=== PATIENT | female | born 1965 | race Caucasian/White ===

== ENCOUNTER → 2018-05-12 20:31 | Outpatient (CLI) | payer SELFPAY ==
[2012-06-02 02:03] VITALS: BMI 33.3
== END | disposition home or self-care (01) ==
LOC: D.MAMMO 10:30
DX: Z12.31 Encounter for screening mammogram for malignant neoplasm of breast (principal)

== ENCOUNTER 2018-06-04 22:25 | Outpatient (CLI) | payer MEDICAID ==
[2012-06-02 02:03] VITALS: BMI 33.3
== END 2018-06-04 23:59 | disposition home or self-care (01) ==
LOC: D.MAMMO 22:25
DX: R92.8 Other abnormal and inconclusive findings on diagnostic imaging of breast (principal)

== ENCOUNTER → 2018-09-24 10:37 | Outpatient (CLI) | payer MEDICAID ==
[2012-06-02 02:03] VITALS: BMI 33.3
== END | disposition home or self-care (01) ==
LOC: D.CT 10:37
DX: C21.0 Malignant neoplasm of anus, unspecified (principal)

== ENCOUNTER 2018-10-14 06:24 | Day surgery (SDC) | payer MEDICAID ==
[~2018-10-14] VITALS: Ht 165.1 cm; Wt 72.7 kg
--- NOTE | ~2018-10-14 | OP ---
PATIENT NAME: BECKY KEENAN MEDICAL RECORD: [id number] :61 LOCATION:D.OPS ADMISSION DATE: SURGEON: SHER BEAN MD DATE OF OPERATION: 10/14/2018 PREOPERATIVE DIAGNOSES: 1. Rectal cancer. 2. Hypertension. POSTOPERATIVE DIAGNOSES: 1. Rectal cancer. 2. Hypertension. PROCEDURE: Right subclavian vein port placement with fluoroscopic interpretation. SURGEON: Sher Bean MD REPORT OF PROCEDURE: The patient's right chest was prepped and draped in sterile fashion. A needle was used to cannulate the right subclavian vein and a guidewire was advanced with ease. Fluoro was used to note that the wire was in good position in the venous system. A skin incision was made on the right lateral superior chest and a subcutaneous pouch was made over the pectoral fascia. The catheter was tunneled between the subcutaneous pouch and the wire exit site. The port was then sutured to the pectoral fascia using interrupted 3-0 Prolenes times 2. The catheter was cut with a beveled tip at 23-cm. The dilator trocar device placed over the wire and the wire and dilator were removed. The catheter tip was advanced through the trocar with ease and the trocar was then removed. The catheter tip was then noted to be resting in good position at the right atrial superior vena caval junction. The catheter aspirated nonpulsatile dark blood and flushed easily with heparinized saline. The subcutaneous tissues were reapproximated with interrupted 3-0 Vicryl and the skin was closed with running subcutaneous 5-0 Monocryl. COMPLICATIONS: None. CONDITION: Stable. ANESTHESIA: General endotracheal and local. BLOOD LOSS: Minimal. TRANSINT:[id number] Voice Confirmation ID: [id number] DOCUMENT ID: [id number] SHER BEAN MD CC: RAYMOND EDMONDSON MD and MARIA DEL CARMEN SALMERON MD [id number] DICTATION DATE: 10/14/18 0959 CAPTAIN WAITER/WAITRESS: 10/14/18 10[address] [place] [id number] [place] [id number]
[~2018-10-14 06:24] MED LIST: ATIVAN0.5 MG PO; COREG6.25 MG PO; PREVACID30 MG PO; PRINIVIL20 MG PO; PROBIOTIC1 EAC1 PO; XELODA500 MG PO; ZOFRAN ODT4 MG/UDTAB PO
[2018-10-14 06:59] LABS: ANION GAP 13.7 mmol/L (8-16); CALCIUM 8.7 mg/dL (8.5-10.1); POTASSIUM - SERUM 3.7 mmol/L (3.5-5.1)
[2018-10-14 07:19] LABS: BASOPHILS 0.6 % (0-2); EOSINOPHILS 1.3 % (0-7); HEMATOCRIT 34.1 % (36.0-48.0); HEMOGLOBIN 10.9 g/dL (12-16); IMMATURE GRANULOCYTES 1.3 % (0-5); LYMPHOCYTES 13.6 % (15-50); MCH 24.8 pg (26.0-34.0); MCV 77.7 fL (80.0-100.0); MEAN PLATELET VOLUME 9.8 fL (7.4-10.4); MONOCYTES 11.4 % (2-11); NEUTROPHILS 71.8 % (40-80); RBC 4.39 10x6/uL (4.00-5.40); RDW 16.7 % (11.5-14.5); WBC 5.4 10x3/uL (4.8-10.8)
[2018-10-14 07:27] LABS: PLATELET COUNT 308 10x3/uL (130-400)
[2018-10-14 08:11] LABS: HCG URINE NEGATIVE (NEGATIVE)
[2018-10-14 08:29] VITALS: BP 108/75; Ht 165.1 cm; Wt 72.7 kg
[2018-10-14] MEDS ORDERED: NORCO 10-325 TA1 TAB PO (09:53)
--- NOTE | 2018-10-14 12:10 | NUR ---
PATIENT AMBULATES TO BATHROOM WITH MINIMAL DIZZINESS. REPORTS CHRONIC DIZZINESS WITH A RECENT FALL AT HOME YESTERDAY. PATIENT TOLERATING CLEAR LIQUIDS WITH MINIMAL NAUSEA, NO VOMITING
--- NOTE | 2018-10-14 12:35 | NUR ---
DISCHARGE INSTRUCTIONS REVIEWED WITH PATIENT, MOTHER, AND DAUGHTER. DISCHARGED HOME VIA WHEELCHAIR TO PRIVATE VEHICLE WITH FAMILY
== END 2018-10-14 12:35 | disposition home or self-care (01) ==
LOC: D.OPS 06:24 → D.PAN 09:00 → D.OPS 09:00
PROVIDERS: Surgery
DX: C20 Malignant neoplasm of rectum (principal)

== ENCOUNTER → 2018-11-25 09:21 | Outpatient (CLI) | payer MEDICAID ==
[2018-10-14 08:29] VITALS: BMI 26.6
[~2018-11-25 09:21] MED LIST changes: +NORCO 10-325 TA1 TAB PO
== END | disposition home or self-care (01) ==
LOC: D.CT 09:21
PROVIDERS: ATTEND Internal Medicine Medical Oncology
DX: C20 Malignant neoplasm of rectum (principal); D50.9 Iron deficiency anemia, unspecified; R11.2 Nausea with vomiting, unspecified; E86.0 Dehydration

== ENCOUNTER 2018-12-07 16:36 | Inpatient (IN) | payer MEDICAID ==
[~2018-12-07] VITALS: Ht 165.1 cm; Wt 62.1 kg
[2018-12-13] MEDS ORDERED: PROBIOTIC250 MG PO (15:21)
[2018-12-13 15:54] LABS: BASOPHILS 0.3 % (0-2); EOSINOPHILS 4.4 % (0-7); HEMATOCRIT 38.1 % (36.0-48.0); HEMOGLOBIN 12.8 g/dL (12-16); IMMATURE GRANULOCYTES 0.5 % (0-5); LYMPHOCYTES 14.5 % (15-50); MCH 28.7 pg (26.0-34.0); MCHC 33.6 g/dL (31.0-37.0); MCV 85.4 fL (80.0-100.0); MEAN PLATELET VOLUME 9.4 fL (7.4-10.4); MONOCYTES 17.1 % (2-11); NEUTROPHILS 63.2 % (40-80); RBC 4.46 10x6/uL (4.00-5.40); RDW 19.5 % (11.5-14.5); WBC 3.9 10x3/uL (4.8-10.8)
[2018-12-13 16:03] LABS: APTT 28.5 SECONDS (22.8-39.4); INR 1.07 (0.85-1.17); PROTIME 13.4 SECONDS (11.6-15.0)
[2018-12-13 16:06] LABS: PLATELET COUNT 185 10x3/uL (130-400)
[2018-12-13 16:10] LABS: CALC OSMOLALITY 280 mosm/kg (275-300); CALCIUM 8.5 mg/dL (8.5-10.1); CARBON DIOXIDE 31.3 mmol/L (21.0-32.0); CHLORIDE - SERUM 104 mmol/L (98-107); CREATININE - SERUM 0.8 mg/dL (0.6-1.3); GLUCOSE 93 mg/dL (74-106); POTASSIUM - SERUM 3.3 mmol/L (3.5-5.1); SODIUM 142 mmol/L (136-145); UREA NITROGEN 6 mg/dL (7-18); eGFR NON AFRICAN AMERICAN 79 mL/min (90-120)
[2018-12-14 10:53] VITALS: BP 118/92; BMI 22.8
[2018-12-14 11:09] LABS: HCG URINE NEGATIVE (NEGATIVE)
--- NOTE | 2018-12-14 16:34 | NUR ---
SCOPE PATCH BEHIND LEFT EAR ON ADMIT
--- NOTE | 2018-12-14 16:35 | NUR ---
50CC OF RED DRAINAGE REMOVED FROM KENNETH DRAIN @7765
--- NOTE | 2018-12-14 16:46 | NUR ---
ANOTHER 50CC OF DRAINAGE REMOVED FROM KENNETH DRAIN @9220
[2018-12-14 16:54] VITALS: BP 115/78
--- NOTE | 2018-12-14 17:10 | NUR ---
RECEIVED PATIENT FROM RECOVERY. VS STABLE. ASSUMED CARE. MOTHER, SUELLEN MONTANEZ, STATES THAT PATIENT IS ALLERGIC TO MILK, PEACHES, CHICKEN, POTATOES AND BOLIVAR.
[2018-12-14 17:53] VITALS: BP 115/78; BMI 22.8
--- NOTE | 2018-12-14 20:00 | NUR ---
ASSESSMENT PER FLOWSHEET. IV PATENT RT WRIST OF NS AT 125CC'S/HR METHANE GAS COLLECTION SYSTEM OPERATOR OF DILAUDID IN USE WITH SETTINGS AT 0.2MG Q10MIN W/4MG Q4H L/O. COLOSTOMY TO LEFT UPPER ABDOMEN NOTHING IN BAG. KENNETH DRAIN TO RT UPPER ABDOMEN WITH 70CC'S BLOODY DRAINAGE NOTED AND EMPTIED. INCISION TO ABDOMEN DRSG C/D/I. CARLSON TO BS DRAINAGE WITH YELLOW URINE. KRYSTIN PAD TO RECTAL INCISION C/D/I.
[2018-12-14 20:54] VITALS: BP 107/67
--- NOTE | 2018-12-15 | NUR ---
EYES CLOSED RESPIRATIONS WITH EASE AND UNLABORED.
[2018-12-15 00:54] VITALS: BP 104/62
--- NOTE | 2018-12-15 01:54 | NUR ---
C/O NAUSEA ZOFRAN 4MG IVP GIVEN FOR RELIEF OF NAUSEA.
--- NOTE | 2018-12-15 04:29 | NUR ---
EYES CLOSED RESPIRATIONS WITH EASE AND UNLABORED. MEDS PER NOV.
[2018-12-15 05:01] VITALS: BP 109/58
--- NOTE | 2018-12-15 06:19 | NUR ---
MEDS GIVEN PER NOV. C/O NAUSEA TO EARLY FOR MORE ZOFRAN ORDERED Q6H. LAST DOSE GIVEN 020.
[2018-12-15 06:37] LABS: BASOPHILS 0.1 % (0-2); EOSINOPHILS 0 % (0-7); IMMATURE GRANULOCYTES 0.4 % (0-5); LYMPHOCYTES 5.8 % (15-50); MCH 28.8 pg (26.0-34.0); MCHC 33.8 g/dL (31.0-37.0); MCV 85.2 fL (80.0-100.0); MEAN PLATELET VOLUME 9.4 fL (7.4-10.4); MONOCYTES 14.3 % (2-11); NEUTROPHILS 79.4 % (40-80); PLATELET COUNT 180 10x3/uL (130-400); RDW 19.8 % (11.5-14.5)
[2018-12-15 06:47] LABS: CALCIUM 7.7 mg/dL (8.5-10.1); CARBON DIOXIDE 29.6 mmol/L (21.0-32.0); CHLORIDE - SERUM 107 mmol/L (98-107); CREATININE - SERUM 0.7 mg/dL (0.6-1.3); GLUCOSE 118 mg/dL (74-106); SODIUM 141 mmol/L (136-145); eGFR NON AFRICAN AMERICAN > 90 mL/min (90-120)
[2018-12-15 06:49] LABS: CALC OSMOLALITY 280 mosm/kg (275-300); POTASSIUM - SERUM 3.9 mmol/L (3.5-5.1); UREA NITROGEN 10 mg/dL (7-18)
--- NOTE | 2018-12-15 07:31 | NUR ---
PT IS VERY NAUSEOUS DUE TO DRIP MOLDER, ZOFRAN Q6 IS NOT HELPING, PT ALSO HAS PATCH AND STILL NAUSEOUS, CHANGED ZOFRAN TO Q4 IN ORFER TO ADMINSITER ZOFRAN NOW AND WILL SPEAK TO ALEXIA IN REGARDS TO PAIN MEDICATION. MOTHER AT BEDSIDE, PT STATES PAIN IS AT A 5. ASSUME AND CONTINUE PLAN OF ARE
[2018-12-15 07:37] LABS: HEMATOCRIT 28.1 % (36.0-48.0); HEMOGLOBIN 9.5 g/dL (12-16)
[2018-12-15 08:18] VITALS: BP 105/64
--- NOTE | 2018-12-15 09:57 | NUR ---
PT STARTED ON NEW MEDICATIONS, ADMINISTERED PER MAR, PT STARTED TO GET NAUSEOUS AND STARTED TO DRY HEAVE, PT DAUGHTER IN ROOM AND STATED MOM IS VERY SENSITIVE TO PAIN MEDICATIONS, ORDERED FAN FOR PT, CONTINUE WITH PLAN OF CARE
[2018-12-15 12:19] VITALS: BP 102/57
[2018-12-15 12:48] VITALS: Ht 165.1 cm; Wt 62.1 kg
--- NOTE | 2018-12-15 13:20 | NUR ---
PT IN ROOM WITH FAMILY AT BEDSIDE, STATES SHE FEELS BETTER THAN THIS MORNING, SAT UP WITH PT FOR A SEC BUT HAD TO LAY BACK DOWN, BED IN LOW POSITION, CL IN REACH PT HAS CUP OF ICE, NO TOEHR NEEDS VOICED
--- NOTE | 2018-12-15 13:47 | NUR ---
I have reviewed this patient and I concur with the Shift Assessment completed by the Licensed Practical Nurse today this shift.
--- NOTE | 2018-12-15 13:48 | NUR ---
I have reviewed this patient and I concur with the Shift Assessment completed by the Licensed Practical Nurse today this shift.
[2018-12-15 17:09] VITALS: BP 98/49
--- NOTE | 2018-12-15 20:00 | NUR ---
ASSESSMENT PER FLOWSHEET. RESTING QUIETLY DENIES NEEDS MEDS GIVEN PER NOV. IV PATENT RT WRIST OF NS AT 125CC'S/HR SYSTEMS MECHANIC OF DILAUDID IN USE. CARLSON TO BEDSIDE DRAINAGE. ABDOMINAL INCISION C/D/I LEFT UPPER ABD.WITH COLOSTOMY/STOMA BAG EMPTIED. RT UPPER ABDOMEN WITH KENNETH DRAIN SMALL AMOUNT BLOODY DRAINAGE NOTED.PT'S MOTHER AT BEDSIDE.
[2018-12-15 20:10] VITALS: BP 104/42
--- NOTE | 2018-12-15 22:00 | NUR ---
EYES CLOSED RESPIRATIONS WITH EASE AND UNLABORED.
--- NOTE | 2018-12-16 00:57 | NUR ---
RESTING QUIETLY DENIES NEEDS.
[2018-12-16 04:45] VITALS: BP 116/52
[2018-12-16 05:20] LABS: BASOPHILS 0.2 % (0-2); HEMATOCRIT 24.6 % (36.0-48.0); IMMATURE GRANULOCYTES 0.6 % (0-5); LYMPHOCYTES 5.5 % (15-50); MCH 28.1 pg (26.0-34.0); MCHC 32.5 g/dL (31.0-37.0); MCV 86.3 fL (80.0-100.0); MEAN PLATELET VOLUME 9.2 fL (7.4-10.4); MONOCYTES 12.4 % (2-11); NEUTROPHILS 77.3 % (40-80); RBC 2.85 10x6/uL (4.00-5.40); RDW 20.6 % (11.5-14.5)
[2018-12-16 05:22] LABS: PLATELET COUNT 137 10x3/uL (130-400); WBC 4.8 10x3/uL (4.8-10.8)
[2018-12-16 05:32] LABS: CALC OSMOLALITY 280 mosm/kg (275-300); CALCIUM 7.4 mg/dL (8.5-10.1); CARBON DIOXIDE 24.8 mmol/L (21.0-32.0); CHLORIDE - SERUM 109 mmol/L (98-107); GLUCOSE 79 mg/dL (74-106); SODIUM 142 mmol/L (136-145); UREA NITROGEN 9 mg/dL (7-18)
[2018-12-16 05:37] LABS: CREATININE - SERUM 0.5 mg/dL (0.6-1.3); POTASSIUM - SERUM 3.2 mmol/L (3.5-5.1); eGFR NON AFRICAN AMERICAN > 90 mL/min (90-120)
--- NOTE | 2018-12-16 07:35 | NUR ---
PT RESTING IN BED. PT ALERT AND ORIENTED. PT NPO EXCEPT ICE CHIPS. ABDOMINAL INCISION, DRSG C/D/I. DRSG OVER RECTUM, C/D/I. PT HAS CARLSON. KENNETH TO RIGHT SIDE. COLOSTOMY TO LUQ. PT UP WITH PHYSICAL THERAPY. AGED OR DISABLED CARER DILAUDID INFUSING, 0.2-10-4. NO C/O PAIN. NO S/S OF ACUTE DISTRESS NOTED. PT DENIES ANYTHING FURTHER AT THIS TIME. CALL LIGHT IN REACH. WILL CONTINUE TO MONITOR.
[2018-12-16 09:23] VITALS: BP 115/57
--- NOTE | 2018-12-16 11:00 | NUR ---
DISCONTINUED CARLSON, PER PHYSICIAN ORDERS.
--- NOTE | 2018-12-16 13:02 | NUR ---
Met with pt to give her informational booklet "Living with an Ostomy". She had several visitors so the booklet was left with her for reading later. Encouraged pt to write down any questions she has. She voiced understanding and we decided that we will meet again in the morning for discussion/education.
--- NOTE | 2018-12-16 15:35 | MORECARE ---
CASE MANAGEMENT DISCHARGE SUMMARY PATIENT: BECKY VILLASENOR GINGER UNIT: [id number] ADM DATE: 12/14/18 AGE: 53 : 61 SEX: F ROOM/BED: D.2218 AUTHOR: ESTRADA KEBEDE PHYSICIAN: REFERRING PHYSICIAN: MAREN BEAN MD DATE OF SERVICE: 12/16/18 Discharge Plan Patient Name: BECKY VILLASENOR [facility] [facility] 1965 Planned Disposition: Home with Home Health Anticipated Discharge Date: Discharge Date: Expected LOS: Initial Reviewer: [email or web address] Initial Review Date: 12/14/2018 Generated: 12/16/18 4:34 pm DCPIA - Discharge Planning Initial Assessment Updated by [email or web address]: Jovita Cotto on 12/16/18 3:30 pm * Is the patient Alert and Oriented? Yes * How many steps to enter\exit or inside your home? * PCP Abdulkadir * [facility] * Preadmission Environment Home with Family * ADLs Independent * Equipment None * List name and contact numbers for known caregivers / representatives who currently or will assist patient after discharge: Lana Villasenor ([phone]) * Verbal permission to speak to the caregivers and representatives has been obtained from the patient. Yes * Community resources currently utilized None * Additional services required to return to the preadmission environment? Yes * Can the patient safely return to the preadmission environment? Yes * Has this patient been hospitalized within the prior 30 days at any hospital? No Patient Name: BECKY VILLASENOR Page [phone] at 1535 All edits/amendments must be made on the electronic document DICTATION DATE: 12/16/18 153 EDUCATIONAL ADMINISTRATION TEACHER: ANGIE 12/16/18 153 RPT#: [id number] DC DATE: STATUS: ADM IN [facility] [address] [place] [address] END OF REPORT
--- NOTE | 2018-12-16 15:46 | MORECARE ---
CASE MANAGEMENT DISCHARGE SUMMARY PATIENT: BECKY VILLASENOR GINGER UNIT: [id number] ADM DATE: 12/14/18 AGE: 53 : 61 SEX: F ROOM/BED: D.4839 AUTHOR: YANDYDOC PHYSICIAN: REFERRING PHYSICIAN: MAREN BEAN MD DATE OF SERVICE: 12/16/18 Discharge Plan Patient Name: BECKY VILLASENOR Facility: [facility]:[place] : 1965 Planned Disposition: Home with Home Health Anticipated Discharge Date: Discharge Date: Expected LOS: Initial Reviewer: [email or web address] Initial Review Date: 12/14/2018 Generated: 12/16/18 4:46 pm Comments DCP- Discharge Planning Updated by [email or web address]: Jovita Cotto on 12/16/18 2:[address] Patient Name: BECKY VILLASENOR Admission Status: Elective Accout number: [id number] Admission Date: 12-14-2018 : 1965 Admission Diagnosis: Attending: MAREN BEAN Current LOS: 2 Anticipated DC Date: Planned Disposition: Home with Home Health Primary Insurance: [place] [employer]IONS [place] Discharge Planning Comments: CM met with patient to complete initial dc planning assessment. CM educated patient on the CM role and verbal consent given by patient to complete assessment. Patient lives at home with her adult children. At discharge patient plans to return home and feels this is a safe discharge. She stated that either her mom or her daughter will be the one to drive her home. CM discussed availability of home health, rehab services, and medical equipment. She is a new ostomy and would like home health. CHRISTOFER with [facility] in [place]. I will send a referral to them. CM will continue to follow and will assist as needed with dc plans/needs. Correspondence Specialist: Jovita Cotto DCPIA - Discharge Planning Initial Assessment Updated by [email or web address]: Jovita Cotto on 12/16/18 3:30 pm * Is the patient Alert and Oriented? Yes * How many steps to enter\exit or inside your home? * PCP Abdulkadir * [facility] * Preadmission Environment Home with Family * ADLs Independent * Equipment None * List name and contact numbers for known caregivers / representatives who currently or will assist patient after discharge: Lana Villasenor ([phone]) * Verbal permission to speak to the caregivers and representatives has been obtained from the patient. Yes * Community resources currently utilized None * Additional services required to return to the preadmission environment? Yes * Can the patient safely return to the preadmission environment? Yes * Has this patient been hospitalized within the prior 30 days at any hospital? No External Providers External Provider: [facility] Next Contact Date: Service Request Date: Service Type: Resolution: Reviewer: Comments: Last DP export: 12/16/18 2:35 p Patient Name: BECKY VILLASENOR Page 16657 at 1546 All edits/amendments must be made on the electronic document DICTATION DATE: 12/16/181544 DISTRICT ADMINISTRATOR: ANGIE 12/16/181544 RPT#: [id number] DC DATE: STATUS: ADM IN [facility] [address] [place] [address] END OF REPORT
[2018-12-16 17:53] VITALS: BP 124/60
--- NOTE | 2018-12-16 18:28 | NUR ---
I have reviewed this patient and I concur with the Shift Assessment completed by the Licensed Practical Nurse today this shift.
--- NOTE | 2018-12-16 18:29 | NUR ---
PT RESTING IN BED, FAMILY AT BEDSIDE. NO C/O PAIN. AUTHORIZER KEEPING PAIN UNDER CONTROL. NO S/S OF ACUTE DISTRESS NOTED. CALL LIGHT IN REACH. WILL CONTINUE TO MONITOR.
[2018-12-16 21:57] VITALS: BP 104/58
[2018-12-17 05:05] VITALS: BP 118/65
[2018-12-17 05:26] LABS: CALC OSMOLALITY 279 mosm/kg (275-300); CALCIUM 7.1 mg/dL (8.5-10.1); CARBON DIOXIDE 26.2 mmol/L (21.0-32.0); CHLORIDE - SERUM 110 mmol/L (98-107); CREATININE - SERUM 0.6 mg/dL (0.6-1.3); GLUCOSE 90 mg/dL (74-106); POTASSIUM - SERUM 3.1 mmol/L (3.5-5.1); SODIUM 142 mmol/L (136-145); eGFR NON AFRICAN AMERICAN > 90 mL/min (90-120)
[2018-12-17 05:31] LABS: BASOPHILS 0.3 % (0-2); EOSINOPHILS 8.5 % (0-7); HEMATOCRIT 21.5 % (36.0-48.0); IMMATURE GRANULOCYTES 0.3 % (0-5); LYMPHOCYTES 10.2 % (15-50); MCH 28.6 pg (26.0-34.0); MCHC 33.5 g/dL (31.0-37.0); MCV 85.3 fL (80.0-100.0); MEAN PLATELET VOLUME 9.7 fL (7.4-10.4); MONOCYTES 14.7 % (2-11); PLATELET COUNT 143 10x3/uL (130-400); RBC 2.52 10x6/uL (4.00-5.40); RDW 20.1 % (11.5-14.5); UREA NITROGEN 4 mg/dL (7-18)
[2018-12-17 05:48] LABS: WBC 3.5 10x3/uL (4.8-10.8)
[2018-12-17 05:49] LABS: HEMOGLOBIN 7.2 g/dL (12-16)
--- NOTE | 2018-12-17 07:33 | NUR ---
PT LYING IN BED, AWAKE AND ORIENTED. REQUESTS SCRAMBLED EGGS FOR BREAKFAST. SHE IS POST OP DAY 3, PAGED DR. BEAN TO ASK FI SHE COULD HAVE IT. CHECKED COLOSTOMY, INTACT. NO NEW STOOL OUT. PT STATES SHE HAS BURPED IT TWICE. MOTHER AT BEDSIDE. NO QUESTIONS/COMMENTS/CONCERNS AT THIS TIME.
--- NOTE | 2018-12-17 07:37 | NUR ---
CHANGED DIET TO FULL PER DR. BEAN.
--- NOTE | 2018-12-17 08:03 | OP ---
PATIENT NAME: BECKY KEENAN MEDICAL RECORD: [id number] :61 LOCATION:D.MS [address] ADMISSION DATE:12/14/18 SURGEON: SHER BEAN MD DATE OF OPERATION: 12/14/2018 PREOPERATIVE DIAGNOSES: 1. Anal cancer. 2. Hypertension. POSTOPERATIVE DIAGNOSES: 1. Anal cancer. 2. Hypertension. PROCEDURE: APR. SURGEON: Sher Bean MD RECYCLING SORTER: Megan Haile APRN REPORT OF PROCEDURE: The patient's abdomen and perineal region were prepped and draped in sterile fashion. A skin incision was made in the lower midline. An electrocautery was used to dissect through the subcutaneous tissues until we entered the abdominal cavity. Once inside an Martín retractor was inserted and used as a wound protector. We had some adhesions of the sigmoid colon to the inferior aspect of the abdomen and these were taken down using electrocautery. We eventually were able to mobilize the proximal aspect of the rectum. A window was made in the rectum through the mesorectum and we transected the rectum with a 70 blue load JESSICA stapler. The mesentery was then taken down with sequential clamp and tie technique using 3-0 silks. We eventually began our mobilization of the rectum by dissecting posteriorly. We got into the avascular plane on the posterior aspect of the mesorectum and followed this down anterior to the sacrum as far down in the pelvis as possible. We then approached the anterior aspect of the rectum where there were some adhesions present, likely from her previous radiation treatment. These were taken down carefully with care taken to not to enter the patient's vaginal wall. We eventually were able to free the rectum off the fascial and peritoneal reflections and get down deep into the pelvis. The lateral stalks were then taken down using Harmonic scalpel. We were able to visualize the ureters and these were not injured during the procedure. We continued our dissection as deep in the pelvis as possible. Once we got as far down, then I went to the perineum. An ovoid incision was made around the anus. Electrocautery was used to dissect through the subcutaneous tissues and the muscle layers. We continued our dissection posteriorly to the tip of the coccyx. We took down the ligamentous tissue and we were able to finally penetrate into the abdominal cavity deep in the pelvis. We continued our dissection around the lateral aspects of the rectum. On the anterior aspect of the rectum, there were dense amount of adhesions and the mass appeared to be most prevalent on the anterior and right side of the rectum extending into the surrounding tissues. As we went deeper, this actually came around to the posterior aspect. We eventually were able to get all of this tissue detached from the posterior aspect of the vaginal wall without any evidence of any injury to the vagina. The rectum was eventually dissected free and sent off for permanent specimen. We inspected the area and any bleeding that was found was treated with electrocautery. There was some inflamed tissue near where the tumor was present and I could not tell if this was residual tumor. I went ahead and just did a vigorous resection of any of this inflamed tissue that was on the OPERATIVE REPORT [id number] REEBECKY GINGER posterior and right side of the pelvis near the anus. Once this was done, there was some bleeding from the tissues, which was treated with electrocautery and pressure and eventually we treated the area with Michel. There was no sign of any surgical bleeding at the conclusion of the case. We then closed up the peritoneal opening in multiple layers using interrupted 3-0 Vicryls followed by skin layer of interrupted 2-0 nylons in a vertical mattress stitch. As we reinspected the pelvis, again we did not see any evidence of any bleeding. There was no sign of any ureteral injury or leak. The bladder appeared to be intact. We irrigated out the pelvis, one last time with normal saline. A 19-Fijian Juanito drain was brought in through the right lower quadrant and rested in the pelvis. We then closed up the peritoneum overlying the pelvis using running 3-0 Vicryl. An opening was then made in the left lower quadrant where we had mapped out ostomy site preoperatively. This was done using a 10 blade followed by electrocautery. We made a cruciate incision on the anterior aspect of the fascia and then the rectus muscles before making a longitudinal incision and penetrating into the abdominal cavity. The distal end of the sigmoid colon was brought through this opening and it appeared to rest comfortably in the tissues. The midline fascia was then closed with running #1 loop PDS times 2. The subcutaneous tissues were then reapproximated with a running 3-0 Vicryl and the skin was closed with madalyn. We then matured the ostomy in a brooking fashion using multiple interrupted 4-0 Vicryls. We then applied ostomy bag and a dressing to the midline incision. COMPLICATIONS: None. CONDITION: Stable. ANESTHESIA: General endotracheal. BLOOD LOSS: 300 mL. TRANSINT:[id number] Voice Confirmation ID: [id number] DOCUMENT ID: [id number] SHER BEAN MD at 0803 CC: RAYMOND EDMONDSON MD, LYNSEY MAN MD, MARIA DEL CARMEN SALMERON MD and [id number] DICTATION DATE: 12/14/18 1603 FINANCIAL SERVICES REP: 12/14/18 2225 ADM IN [facility] [address] [place] [id number]
[2018-12-17 09:30] VITALS: BP 136/72
--- NOTE | 2018-12-17 10:21 | NUR ---
Met with patient, her daughter and her mother to provide information about living with an ostomy. We discussed the stoma, output, when to contact your doctor. We talked about stoma appliances and skin care. Also diet, odor and bathing. How to measure the stoma and cut the wafer to fit was demonstrated. Pt, daughter and mother asked many questions and were very perceptive to the teaching/learning. A list of ostomy suppliers was provided for pt for used [facility].
--- NOTE | 2018-12-17 10:27 | NUR ---
STARTED FIRST UNIT OF BLOOD. NO REACTIONS S/S AT THIS TIME. CL IN ROOM. INSTRUCTIONS FOR REACTIONS SYMPTOMS GIVEN. FAMILY AT BEDSIDE. KENNETH DRAIN EMPTIED, 75CC OUT.
--- NOTE | 2018-12-17 11:29 | MORECARE ---
CASE MANAGEMENT DISCHARGE SUMMARY PATIENT: BECKY VILLASENOR GINGER UNIT: [id number] ADM DATE: 12/14/18 AGE: 53 : 61 SEX: F ROOM/BED: D.4536 AUTHOR: YANDY,DOC PHYSICIAN: REFERRING PHYSICIAN: MAREN BEAN MD DATE OF SERVICE: 12/17/18 Discharge Plan Patient Name: BECKY VILLASENOR Facility: [facility]:[place] : 1965 Planned Disposition: Home with Home Health Anticipated Discharge Date: Discharge Date: Expected LOS: Initial Reviewer: [email or web address] Initial Review Date: 12/14/2018 Generated: 12/17/18 12:28 pm Comments DCP- Discharge Planning Updated by [email or web address]: Jovita Cotto on 12/17/18 10:[address] SPOKE WITH CAMILLE AT [facility] IN [place], THEY WILL ACCEPT THE PATIENT WHEN SHE IS DISCHARGED. WE WILL BEED TO SEND PATIENT HOME WITH OSTOMY SUPPLIES FOR A FEW DAYS SO IT WILL GIVE THEM TIME TO ORDER THEM FOR HER. CM WILL CONTINUE TO FOLLOW AND ASSIST WITH DC PLANNING DCP- Discharge Planning Updated by [email or web address]: Jovita Cotto on 12/16/18 2:[address] Patient Name: BECKY VILLASENOR Admission Status: Elective Accout number: [id number] Admission Date: 12-14-2018 : 1965 Admission Diagnosis: Attending: MAREN BEAN Current LOS: 2 Anticipated DC Date: Planned Disposition: Home with Home Health Primary Insurance: [facility] PRIVATE OPTIONS [facility] Discharge Planning Comments: CM met with patient to complete initial dc planning assessment. CM educated patient on the CM role and verbal consent given by patient to complete assessment. Patient lives at home with her adult children. At discharge patient plans to return home and feels this is a safe discharge. She stated that either her mom or her daughter will be the one to drive her home. CM discussed availability of home health, rehab services, and medical equipment. She is a new ostomy and would like home health. CHRISTOFER with [facility] in [place]. I will send a referral to them. CM will continue to follow and will assist as needed with dc plans/needs. Engineering Systems Analyst: Jovita Cotto DCPIA - Discharge Planning Initial Assessment Updated by [id number]: Jovita Cotto on 12/16/18 3:30 pm * Is the patient Alert and Oriented? Yes * How many steps to enter\exit or inside your home? * PCP Abdulkadir * [facility] * Preadmission Environment Home with Family * ADLs Independent * Equipment None * List name and contact numbers for known caregivers / representatives who currently or will assist patient after discharge: Lana Villasenor ([phone]) * Verbal permission to speak to the caregivers and representatives has been obtained from the patient. Yes * Community resources currently utilized None * Additional services required to return to the preadmission environment? Yes * Can the patient safely return to the preadmission environment? Yes * Has this patient been hospitalized within the prior 30 days at any hospital? No Last DP export: 12/16/18 2:46 p Patient Name: BECKY VILLASENOR Page 32587 at 1129 All edits/amendments must be made on the electronic document DICTATION DATE: 12/17/181127 ENTRY OPERATOR: ANGIE 12/17/181127 RPT#: [id number] DC DATE: STATUS: ADM IN [facility] [address] [place] [address] END OF REPORT
[2018-12-17 13:31] VITALS: BP 130/46
--- NOTE | 2018-12-17 13:37 | NUR ---
HUNG SECOND UNIT OF BLOOD. NO REACTION S/S AT THIS TIME. CL IN REACH. DAUGHTER AT BEDSIDE. SRX2.
--- NOTE | 2018-12-17 14:00 | NUR ---
Nutrition Follow Up: Chart reviewed. Diet has been advanced to regular. Labs reviewed. Meds noted including Lasix. Rec continue current diet as tolerated. Will honor food preferences. RD following.
[2018-12-17 17:16] VITALS: BP 137/73
[2018-12-17 20:00] VITALS: BP 136/79
[2018-12-17 23:59] VITALS: BP 115/71
[2018-12-18 04:00] VITALS: BP 122/71
[2018-12-18 06:23] LABS: BASOPHILS 0.2 % (0-2); EOSINOPHILS 10.1 % (0-7); IMMATURE GRANULOCYTES 0.9 % (0-5); LYMPHOCYTES 9.9 % (15-50); MCHC 34.3 g/dL (31.0-37.0); MCV 84.6 fL (80.0-100.0); MEAN PLATELET VOLUME 9.3 fL (7.4-10.4); MONOCYTES 13.9 % (2-11); PLATELET COUNT 146 10x3/uL (130-400); RDW 17.9 % (11.5-14.5)
[2018-12-18 06:36] LABS: HEMATOCRIT 28.6 % (36.0-48.0); HEMOGLOBIN 9.8 g/dL (12-16); RBC 3.38 10x6/uL (4.00-5.40); WBC 4.5 10x3/uL (4.8-10.8)
[2018-12-18 06:51] LABS: CALC OSMOLALITY 283 mosm/kg (275-300); CALCIUM 7.6 mg/dL (8.5-10.1); CARBON DIOXIDE 31.5 mmol/L (21.0-32.0); CHLORIDE - SERUM 108 mmol/L (98-107); CREATININE - SERUM 0.6 mg/dL (0.6-1.3); GLUCOSE 96 mg/dL (74-106); POTASSIUM - SERUM 3.2 mmol/L (3.5-5.1); SODIUM 144 mmol/L (136-145); UREA NITROGEN 3 mg/dL (7-18); eGFR NON AFRICAN AMERICAN > 90 mL/min (90-120)
--- NOTE | 2018-12-18 07:52 | NUR ---
PT IS RESTING IN BED WITH EYES OPEN. RESPIRATIONS ARE EVEN AND UNLABORED. FAMILY IS AT BEDSIDE. PT REPORTS PAIN IN RECTUM AT THIS TIME. WILL ADDRESS. SEE EMAR. INCISION TO ABDOMEN IS OPEN TO AIR WITH RUTH. NO DRAINAGE NOTED. KENNETH DRAIN TO RLQ WITH SANGUINOUS FLUID NOTED IN BULB. BULB IS COMPRESSED. COLOSTOMY NOTED TO LEFT ABDOMEN WITH LIQUID BROWN STOOL IN COLLECTION BAG. BED IS IN THE LOWEST POSITION. CALL LIGHT AND BEDSIDE TABLE ARE WITHIN REACH. WILL CONT TO MONITOR.
[2018-12-18 07:56] VITALS: BP 144/70
[2018-12-18 12:49] VITALS: BP 134/78
[2018-12-18 20:02] VITALS: BP 146/82
[2018-12-19 00:49] VITALS: BP 122/65
[2018-12-19 05:07] VITALS: BP 130/75
[2018-12-19 05:28] LABS: BASOPHILS 0 % (0-2); EOSINOPHILS 6.8 % (0-7); HEMATOCRIT 30.2 % (36.0-48.0); HEMOGLOBIN 10.4 g/dL (12-16); IMMATURE GRANULOCYTES 0.8 % (0-5); LYMPHOCYTES 5.8 % (15-50); MCH 29.3 pg (26.0-34.0); MCHC 34.4 g/dL (31.0-37.0); MCV 85.1 fL (80.0-100.0); MEAN PLATELET VOLUME 9.8 fL (7.4-10.4); MONOCYTES 15.9 % (2-11); NEUTROPHILS 70.7 % (40-80); RBC 3.55 10x6/uL (4.00-5.40); RDW 17.4 % (11.5-14.5); WBC 5.2 10x3/uL (4.8-10.8)
[2018-12-19 05:32] LABS: PLATELET COUNT 181 10x3/uL (130-400)
[2018-12-19 05:55] LABS: CALC OSMOLALITY 279 mosm/kg (275-300); CALCIUM 7.6 mg/dL (8.5-10.1); CARBON DIOXIDE 30.2 mmol/L (21.0-32.0); CHLORIDE - SERUM 105 mmol/L (98-107); CREATININE - SERUM 0.5 mg/dL (0.6-1.3); GLUCOSE 95 mg/dL (74-106); SODIUM 142 mmol/L (136-145); UREA NITROGEN 3 mg/dL (7-18); eGFR NON AFRICAN AMERICAN > 90 mL/min (90-120)
[2018-12-19 06:09] LABS: POTASSIUM - SERUM 2.8 mmol/L (3.5-5.1)
--- NOTE | 2018-12-19 07:53 | NUR ---
PT IS RESTING IN BED WITH EYES OPEN. RESPIRATIONS ARE EVEN AND UNLABORED. FAMILY IS AT BEDSIDE. KENNETH DRAIN NOTED TO RLQ. COLOSTOMY NOTED TO LUQ. BROWN STOOL NOTED IN COLOSTOMY BAG. PT REPORTS PAIN AT THIS TIME. WILL ADDRESS. SEE EMAR. RUTH TO MIDLIN INCISION ON ABDOMEN NOTED. SUTURES TO RECTUM NOTED. BED IS IN THE LOWEST POSITION. CALL LIGHT AND BEDSIDE TABLE ARE WITHIN REACH. WILL CONT TO MONITOR.
[2018-12-19 08:38] VITALS: BP 112/58
[2018-12-19 12:25] VITALS: BP 145/70
--- NOTE | 2018-12-19 15:48 | NUR ---
PT STATES THAT SHE WOULD LIKE TOGET UP TO CHAIR "LATER". PT WAS SITTING IN BEDSIDE CHAIR THIS AM AND HAS AMBULATED TO BATHROOM X3 THIS SHIFT. BED IS IN THE LOWEST POSITION. CALL LIGHT AND BEDSIDE TABLE ARE WITHIN REACH. WILL CONT TO MONITOR. K+ RIDER INFUSING WITHOUT DIFFICULTY. PT IS UNABLE TO TOLERATE INFUSION ANY FASTER THAN 40ML/HR.
[2018-12-19 17:10] VITALS: BP 157/79
[2018-12-19 19:55] VITALS: BP 140/71
--- NOTE | 2018-12-19 20:00 | NUR ---
ALERT RESTING IN BED REPORTS FEELING MUCH BETTER TODAY, SEE SHIFT ASSESSMENT, COLOSTOMY BAG INTACT STOMA BEEFY RED LIQUID STOOL NOTED IN BAG, KENNETH DRAIN WITH SMALL AMOUT SEROUS FLUID NOTED, CALL LIGHT IN REACH
[2018-12-20 05:11] VITALS: BP 105/64
--- NOTE | 2018-12-20 08:00 | NUR ---
LYING IN BED,WITHOUT NEEDS.CALL LIGHT IN REACH
[2018-12-20 08:44] VITALS: BP 121/76
--- NOTE | 2018-12-20 08:50 | NUR ---
PT K+ IS 3.4, FOLLOW PROTOCAL, GIVE IV K+ 10MEQ QH X4. CONTINUE WITH PLAN OF CARE, PT STATES NAUSEOUS THIS MORNING, WILL CONTINUE TO MONITOR
[2018-12-20 13:15] VITALS: BP 133/77
[2018-12-20 16:30] VITALS: BP 122/69
--- NOTE | 2018-12-20 20:00 | NUR ---
ASSESSSMENT PER FLOWSHEET. SR UP X2 CALL LIGHT WITHIN REACH. IV PATENT RT IFP SALINE LOCKED. DRESG TO MIDLINE INCISION C/D/I KENNETH DRAIN PATENT RT ABDOMEN WITH SMALL AMOUNT SEROUS DRAINAGE. COLOSTOMY TO LEFT OF INCISION PATENT WITH SMALL AMOUNT STOOL NOTED. RECTAL INCISION WITH SUTURES NOTED. SPOUSE AT BEDSIDE. SR UP X2 CALL LIGHT WITHIN REACH DENIES NEEDS.
--- NOTE | 2018-12-20 21:15 | NUR ---
MEDS GIVEN PER MAR.
[2018-12-20 21:35] VITALS: BP 133/64
--- NOTE | 2018-12-21 | NUR ---
RESTING QUIETLY DENIES NEEDS.
[2018-12-21 01:14] VITALS: BP 118/75
--- NOTE | 2018-12-21 01:57 | NUR ---
EYES CLOSED RESPIRATIONS WITH EASE AND UNLABORED.
--- NOTE | 2018-12-21 03:45 | NUR ---
C/O INCISIONAL PAIN RATES PAIN #7 NORCO 10MG TAB ONE PO GIVEN FOR PAIN CONTROL.
[2018-12-21 04:47] VITALS: BP 115/65
[2018-12-21 05:19] LABS: BASOPHILS 0 % (0-2); EOSINOPHILS 7.1 % (0-7); HEMATOCRIT 29.1 % (36.0-48.0); IMMATURE GRANULOCYTES 0.8 % (0-5); LYMPHOCYTES 4.7 % (15-50); MCH 29.2 pg (26.0-34.0); MCHC 34.4 g/dL (31.0-37.0); MCV 85.1 fL (80.0-100.0); MEAN PLATELET VOLUME 9.4 fL (7.4-10.4); MONOCYTES 16.9 % (2-11); NEUTROPHILS 70.5 % (40-80); PLATELET COUNT 204 10x3/uL (130-400); RBC 3.42 10x6/uL (4.00-5.40); RDW 17.4 % (11.5-14.5); WBC 6.2 10x3/uL (4.8-10.8)
[2018-12-21 05:37] LABS: CALC OSMOLALITY 269 mosm/kg (275-300); CALCIUM 7.7 mg/dL (8.5-10.1); CARBON DIOXIDE 29.7 mmol/L (21.0-32.0); CHLORIDE - SERUM 101 mmol/L (98-107); CREATININE - SERUM 0.5 mg/dL (0.6-1.3); GLUCOSE 88 mg/dL (74-106); POTASSIUM - SERUM 3.6 mmol/L (3.5-5.1); SODIUM 137 mmol/L (136-145); eGFR NON AFRICAN AMERICAN > 90 mL/min (90-120)
[2018-12-21 05:42] LABS: UREA NITROGEN 4 mg/dL (7-18)
--- NOTE | 2018-12-21 06:30 | NUR ---
RESTING QUIETLY PT'S MOTHER HERE TO VISIT.
--- NOTE | 2018-12-21 08:00 | NUR ---
LYING IN BED,WITHOUT DISTRESS
[2018-12-21 08:22] VITALS: BP 102/62
[2018-12-21] MEDS ORDERED: NORCO-10 PO (09:22)
--- NOTE | 2018-12-21 11:50 | NUR ---
WENT OVER PAPERWORK AND DC INSTRUCTIONS WITH PT. CHANGED COLOSTOMY BAG FOR PT. ALL QUESTIONS ANSWERED, PT REQUESTED PAIN MEDICATION BEFORE DC. DAUGHTER TO TAKE PT HOME.
--- NOTE | 2018-12-21 12:02 | MORECARE ---
CASE MANAGEMENT DISCHARGE SUMMARY PATIENT: BECKY VILLASENOR GINGER UNIT: [id number] ADM DATE: 12/14/18 AGE: 53 : 61 SEX: F ROOM/BED: D.5210 AUTHOR: YANDYDOC PHYSICIAN: REFERRING PHYSICIAN: MAREN BEAN MD DATE OF SERVICE: 12/21/18 Discharge Plan Patient Name: BECKY VILLASENOR Facility: [facility]:[place] : 1965 Planned Disposition: Home with Home Health Anticipated Discharge Date: Discharge Date: Expected LOS: Initial Reviewer: [email or web address] Initial Review Date: 12/14/2018 Generated: 12/21/18 1:02 pm Comments DCP- Discharge Planning Updated by [email or web address]: Jovita Cotto on 12/21/18 10:[address] PATIENT WILL BE DISCHARGING HOME WITH [facility] IN [place], I CALLED AND SPOKE WITH LUCA I WILL FAX CLINICAL PAPERWORK TO HER. CM TO FOLLOW DCP- Discharge Planning Updated by [email or web address]: Jovita Cotto on 12/17/18 10:[address] SPOKE WITH CAMILLE AT [facility] IN [place], THEY WILL ACCEPT THE PATIENT WHEN SHE IS DISCHARGED. WE WILL BEED TO SEND PATIENT HOME WITH OSTOMY SUPPLIES FOR A FEW DAYS SO IT WILL GIVE THEM TIME TO ORDER THEM FOR HER. CM WILL CONTINUE TO FOLLOW AND ASSIST WITH DC PLANNING DCP- Discharge Planning Updated by [email or web address]: Jovita Cotto on 12/16/18 2:[address] Patient Name: BECKY VILLASENOR Admission Status: Elective Accout number: [id number] Admission Date: 12-14-2018 : 1965 Admission Diagnosis: Attending: MAREN BEAN Current LOS: 2 Anticipated DC Date: Planned Disposition: Home with Home Health Primary Insurance: [place] PRIVATE OPTIONS [facility] Discharge Planning Comments: CM met with patient to complete initial dc planning assessment. CM educated patient on the CM role and verbal consent given by patient to complete assessment. Patient lives at home with her adult children. At discharge patient plans to return home and feels this is a safe discharge. She stated that either her mom or her daughter will be the one to drive her home. CM discussed availability of home health, rehab services, and medical equipment. She is a new ostomy and would like home health. [facility] in [place]. I will send a referral to them. CM will continue to follow and will assist as needed with dc plans/needs. Reinsurance Clerk: Jovita Cotto DCPIA - Discharge Planning Initial Assessment Updated by [email or web address]: Jovita Cotto on 12/16/18 3:30 pm * Is the patient Alert and Oriented? Yes * How many steps to enter\exit or inside your home? * PCP Abdulkadir * [facility] * Preadmission Environment Home with Family * ADLs Independent * Equipment None * List name and contact numbers for known caregivers / representatives who currently or will assist patient after discharge: Lana Villasenor ([phone]) * Verbal permission to speak to the caregivers and representatives has been obtained from the patient. Yes * Community resources currently utilized None * Additional services required to return to the preadmission environment? Yes * Can the patient safely return to the preadmission environment? Yes * Has this patient been hospitalized within the prior 30 days at any hospital? No Coverage Notice Reviewer: [id number] - Jovita Cotto Notice Issued Date-Time: 12/16/2018 14:31 Notice Type: Patient Choice Letter Notice Delivered To: Patient Relationship to Patient: Floriculture Teacher Name: Delivery Method: - Kalyani Days: Prior Verbal Notification: Recipient Understood Notice: Recipient Signature: Yes Med Rec Note Co-signed by Attending: Coverage Notice Comment: [facility] Last DP export: 12/17/18 10:28 a Patient Name: BECKY VILLASENOR Page 76828 at 1202 All edits/amendments must be made on the electronic document DICTATION DATE: 12/21/18 1202 COOK SEAFOOD: ANGIE 12/21/18 1202 RPT#: [id number] DC DATE: STATUS: ADM IN [facility] [address] [place] [address] END OF REPORT
--- NOTE | 2018-12-22 12:44 | MORECARE ---
CASE MANAGEMENT DISCHARGE SUMMARY PATIENT: BECKY VILLASENOR GINGER UNIT: [id number] ADM DATE: 12/14/18 AGE: 53 : 61 SEX: F ROOM/BED: D.9318 AUTHOR: YANDY,DOC PHYSICIAN: REFERRING PHYSICIAN: MAREN BEAN MD DATE OF SERVICE: 12/22/18 Discharge Plan Patient Name: BECKY VILLASENOR Facility: [facility]:[place] : 1965 Planned Disposition: Home with Home Health Anticipated Discharge Date: Discharge Date: 12/21/2018 Expected LOS: 0 Initial Reviewer: [email or web address] Initial Review Date: 12/14/2018 Generated: 12/22/18 1:43 pm Comments DCP- Discharge Planning Updated by [email or web address]: Jovita Cotto on 12/21/18 10:[address] PATIENT WILL BE DISCHARGING HOME WITH [facility] [place], I CALLED AND SPOKE WITH LUCA I WILL FAX CLINICAL PAPERWORK TO HER. CM TO FOLLOW DCP- Discharge Planning Updated by [email or web address]: Jovita Cotto on 12/17/18 10:[address] SPOKE WITH CAMILLE AT [facility] [place], THEY WILL ACCEPT THE PATIENT WHEN SHE IS DISCHARGED. WE WILL BEED TO SEND PATIENT HOME WITH OSTOMY SUPPLIES FOR A FEW DAYS SO IT WILL GIVE THEM TIME TO ORDER THEM FOR HER. CM WILL CONTINUE TO FOLLOW AND ASSIST WITH DC PLANNING DCP- Discharge Planning Updated by [email or web address]: Jovita Cotto on 12/16/18 2:[address] Patient Name: BECKY VILLASENOR Admission Status: Elective Accout number: [id number] Admission Date: 12-14-2018 : 1965 Admission Diagnosis: Attending: MAREN BEAN Current LOS: 2 Anticipated DC Date: Planned Disposition: Home with Home Health Primary Insurance: [facility] PRIVATE OPTIONS [facility] Discharge Planning Comments: CM met with patient to complete initial dc planning assessment. CM educated patient on the CM role and verbal consent given by patient to complete assessment. Patient lives at home with her adult children. At discharge patient plans to return home and feels this is a safe discharge. She stated that either her mom or her daughter will be the one to drive her home. CM discussed availability of home health, rehab services, and medical equipment. She is a new ostomy and would like home health. [facility] in [place]. I will send a referral to them. CM will continue to follow and will assist as needed with dc plans/needs. Catalogue Compiler: Jovita Cotto DCPIA - Discharge Planning Initial Assessment Updated by [email or web address]: Jovita Cotto on 12/16/18 3:30 pm * Is the patient Alert and Oriented? Yes * How many steps to enter\exit or inside your home? * PCP Abdulkadir * [facility] * Preadmission Environment Home with Family * ADLs Independent * Equipment None * List name and contact numbers for known caregivers / representatives who currently or will assist patient after discharge: Lana Villasenor ([phone]) * Verbal permission to speak to the caregivers and representatives has been obtained from the patient. Yes * Community resources currently utilized None * Additional services required to return to the preadmission environment? Yes * Can the patient safely return to the preadmission environment? Yes * Has this patient been hospitalized within the prior 30 days at any hospital? No Coverage Notice Reviewer: [id number] - Jovita Cotto Notice Issued Date-Time: 12/16/2018 14:31 Notice Type: Patient Choice Letter Notice Delivered To: Patient Relationship to Patient: Career Representative Name: Delivery Method: - Kalyani Days: Prior Verbal Notification: Recipient Understood Notice: Recipient Signature: Yes Med Rec Note Co-signed by Attending: Coverage Notice Comment: [facility] Last DP export: 12/21/18 11:02 am Patient Name: BECKY VILLASENOR Page [phone] at 1244 All edits/amendments must be made on the electronic document DICTATION DATE: 12/22/18 1243 GENERAL ACTIVITIES THERAPIST: ANGIE 12/22/18 1243 RPT#: [id number] DC DATE:12/21/18 STATUS: DIS IN [facility] [address] [place] [address] END OF REPORT
== END 2018-12-21 12:49 | disposition home health service (06) | DRG 330 ==
LOC: D.MS 12-14 09:45 → D.SDCHOLD 12-14 09:45 → D.MS 12-14 15:56
PROVIDERS: Anesthesiology; ADMIT Surgery; ATTEND Surgery
PROC: 0DTN0ZZ Resection of Sigmoid Colon, Open Approach (ICD-10-PCS; 2018-12-14)
PROC: 0DTQ0ZZ Resection of Anus, Open Approach (ICD-10-PCS; 2018-12-14)
PROC: 0D1N0Z4 Bypass Sigmoid Colon to Cutaneous, Open Approach (ICD-10-PCS; 2018-12-14)
PROC: 0DTP0ZZ Resection of Rectum, Open Approach (ICD-10-PCS; principal; 2018-12-14 12:00)
DX: C20 Malignant neoplasm of rectum (principal); D62 Acute posthemorrhagic anemia; I10 Essential (primary) hypertension; E87.6 Hypokalemia

== ENCOUNTER → 2018-12-22 16:40 | Outpatient (CLI) | payer MEDICAID ==
[2018-12-15 12:48] VITALS: BMI 22.7
[~2018-12-22 16:40] MED LIST changes: +NORCO-10 PO; +PROBIOTIC250 MG PO
== END | disposition home or self-care (01) ==
LOC: D.CT 15:00
PROVIDERS: ATTEND Surgery
DX: C20 Malignant neoplasm of rectum (principal)

== ENCOUNTER → 2018-12-29 17:44 | Outpatient (CLI) | payer MEDICAID ==
[~2018-12-29 17:44] MED LIST changes: +CYMBALTA30 MG PO; +FLAGYL500 MG PO; +HYDROCODON-ACE1 EA10 PO; +PHENERGAN25 M1 PO; +PROZAC20 MG PO; +SULFAMETHOXAZOL1 TA3 PO
== END | disposition home or self-care (01) ==
LOC: D.LABREF 17:44
DX: Z00.00 Encounter for general adult medical examination without abnormal findings (principal)

== ENCOUNTER 2019-01-05 12:08 | Observation (INO) | payer MEDICAID ==
[~2019-01-05] VITALS: Ht 165.1 cm; Wt 56.7 kg
[~2019-01-05 12:08] MED LIST changes: -CYMBALTA30 MG PO; -FLAGYL500 MG PO; -HYDROCODON-ACE1 EA10 PO; -PHENERGAN25 M1 PO; -PROZAC20 MG PO; -SULFAMETHOXAZOL1 TA3 PO
[2019-01-05] MEDS ORDERED: PHENERGAN25 M1 PO (13:21)
[2019-01-05] MEDS ORDERED: SULFAMETHOXAZOL1 TA3 PO (13:22)
[2019-01-05] MEDS ORDERED: FLAGYL500 MG PO (13:22)
[2019-01-05] MEDS ORDERED: PROZAC20 MG PO (13:23)
[2019-01-05 14:08] LABS: BASOPHILS 0.1 % (0-2); EOSINOPHILS 0.3 % (0-7); HEMATOCRIT 32.8 % (36.0-48.0); HEMOGLOBIN 11.5 g/dL (12-16); LYMPHOCYTES 4.8 % (15-50); MCHC 35.1 g/dL (31.0-37.0); MCV 82.6 fL (80.0-100.0); MEAN PLATELET VOLUME 8.7 fL (7.4-10.4); MONOCYTES 8.7 % (2-11); NEUTROPHILS 85.1 % (40-80); RBC 3.97 10x6/uL (4.00-5.40); RDW 15.9 % (11.5-14.5); WBC 15.4 10x3/uL (4.8-10.8)
[2019-01-05 14:11] LABS: PLATELET COUNT 458 10x3/uL (130-400)
[2019-01-05 14:29] LABS: ALBUMIN 2.5 g/dL (3.4-5.0); ALKALINE PHOSPHATASE 87 U/L (46-116); ALT (SGPT) 10 U/L (10-68); BILIRUBIN - TOTAL 0.24 mg/dL (0.2-1.3); CALC OSMOLALITY 243 mosm/kg (275-300); CALCIUM 8.2 mg/dL (8.5-10.1); CARBON DIOXIDE 25.3 mmol/L (21.0-32.0); CHLORIDE - SERUM 92 mmol/L (98-107); CREATININE - SERUM 0.7 mg/dL (0.6-1.3); GLUCOSE 101 mg/dL (74-106); MAGNESIUM - SERUM 1.7 mg/dL (1.8-2.4); PHOSPHOROUS 3.2 mg/dL (2.5-4.9); POTASSIUM - SERUM 3.8 mmol/L (3.5-5.1); PROTEIN - SERUM 6.4 g/dL (6.4-8.2); SODIUM 122 mmol/L (136-145); UREA NITROGEN 7 mg/dL (7-18); eGFR NON AFRICAN AMERICAN > 90 mL/min (90-120)
[2019-01-05 15:58] VITALS: BP 112/51
[2019-01-05 20:30] VITALS: BP 101/52
[2019-01-06 00:57] VITALS: BP 108/63
[2019-01-06 04:55] VITALS: BP 99/46
[2019-01-06 06:49] LABS: BASOPHILS 0.3 % (0-2); EOSINOPHILS 3.4 % (0-7); HEMATOCRIT 28.3 % (36.0-48.0); HEMOGLOBIN 9.4 g/dL (12-16); IMMATURE GRANULOCYTES 1.6 % (0-5); LYMPHOCYTES 11.3 % (15-50); MCH 28.4 pg (26.0-34.0); MCHC 33.2 g/dL (31.0-37.0); MEAN PLATELET VOLUME 8.5 fL (7.4-10.4); MONOCYTES 13.2 % (2-11); NEUTROPHILS 70.2 % (40-80); RBC 3.31 10x6/uL (4.00-5.40); RDW 16.3 % (11.5-14.5)
[2019-01-06 06:50] LABS: MCV 85.5 fL (80.0-100.0); PLATELET COUNT 300 10x3/uL (130-400); WBC 6.2 10x3/uL (4.8-10.8)
[2019-01-06 07:13] LABS: CALC OSMOLALITY 273 mosm/kg (275-300); CALCIUM 7.8 mg/dL (8.5-10.1); CARBON DIOXIDE 26.3 mmol/L (21.0-32.0); CHLORIDE - SERUM 107 mmol/L (98-107); CREATININE - SERUM 0.6 mg/dL (0.6-1.3); GLUCOSE 84 mg/dL (74-106); MAGNESIUM - SERUM 1.7 mg/dL (1.8-2.4); PHOSPHOROUS 3.6 mg/dL (2.5-4.9); POTASSIUM - SERUM 4.1 mmol/L (3.5-5.1); SODIUM 139 mmol/L (136-145); eGFR NON AFRICAN AMERICAN > 90 mL/min (90-120)
[2019-01-06 07:14] LABS: UREA NITROGEN 4 mg/dL (7-18)
[2019-01-06 08:11] VITALS: BP 120/67
[2019-01-06 12:09] VITALS: BP 119/62
[2019-01-06 12:23] VITALS: Ht 165.1 cm; Wt 56.7 kg
[2019-01-06 14:00] VITALS: BP 116/66
[2019-01-06 20:47] VITALS: BP 127/66
[2019-01-07 00:52] VITALS: BP 99/48
[2019-01-07 05:08] VITALS: BP 113/58
[2019-01-07 08:46] VITALS: BP 106/49
[2019-01-07 13:47] VITALS: BP 105/46
[2019-01-07 16:35] VITALS: BP 103/62
== END 2019-01-07 18:29 | disposition home or self-care (01) ==
LOC: D.M3 12:08 → OBSVTIME 12:10 → D.M3 01-07 18:29
PROVIDERS: ADMIT Surgery; ATTEND Surgery
DX: C20 Malignant neoplasm of rectum (principal)

== ENCOUNTER → 2019-01-17 12:37 | Outpatient (CLI) | payer MEDICAID ==
[2019-01-06 12:23] VITALS: BMI 20.8
[~2019-01-17 12:37] MED LIST changes: +FLAGYL500 MG PO; +PHENERGAN25 M1 PO; +PROZAC20 MG PO; +SULFAMETHOXAZOL1 TA3 PO
== END | disposition home or self-care (01) ==
LOC: D.CT 12:37
PROVIDERS: ATTEND Surgery
DX: C20 Malignant neoplasm of rectum (principal)

== ENCOUNTER 2019-01-20 05:58 | Outpatient (CLI) | payer MEDICAID ==
[~2019-01-20] VITALS: Ht 165.1 cm; Wt 61.2 kg
[2019-01-20 07:20] LABS: BASOPHILS 0.2 % (0-2); EOSINOPHILS 4.5 % (0-7); HEMATOCRIT 32.1 % (36.0-48.0); HEMOGLOBIN 10.7 g/dL (12-16); IMMATURE GRANULOCYTES 0.2 % (0-5); LYMPHOCYTES 10.4 % (15-50); MCHC 33.3 g/dL (31.0-37.0); MEAN PLATELET VOLUME 8.9 fL (7.4-10.4); MONOCYTES 14.6 % (2-11); NEUTROPHILS 70.1 % (40-80); PLATELET COUNT 252 10x3/uL (130-400); RBC 3.69 10x6/uL (4.00-5.40); RDW 15.6 % (11.5-14.5); WBC 5.1 10x3/uL (4.8-10.8)
[2019-01-20 07:23] LABS: CALC OSMOLALITY 271 mosm/kg (275-300); CARBON DIOXIDE 28.3 mmol/L (21.0-32.0); CHLORIDE - SERUM 102 mmol/L (98-107); CREATININE - SERUM 0.7 mg/dL (0.6-1.3); GLUCOSE 90 mg/dL (74-106); POTASSIUM - SERUM 3.9 mmol/L (3.5-5.1); SODIUM 137 mmol/L (136-145); UREA NITROGEN 8 mg/dL (7-18); eGFR NON AFRICAN AMERICAN > 90 mL/min (90-120)
[2019-01-20 07:31] LABS: HCG URINE NEGATIVE (NEGATIVE)
[2019-01-20 07:44] LABS: APTT 33.9 SECONDS (22.8-39.4); INR 1.02 (0.85-1.17); PROTIME 12.9 SECONDS (11.6-15.0)
[2019-01-20 07:51] VITALS: BP 119/70; BMI 20.3
[2019-01-20 15:23] VITALS: BMI 22.5
[2019-01-20 20:00] VITALS: BP 121/64
[2019-01-21] VITALS: BP 108/73
[2019-01-21 03:57] LABS: BASOPHILS 0.3 % (0-2); EOSINOPHILS 11.1 % (0-7); HEMATOCRIT 30.3 % (36.0-48.0); HEMOGLOBIN 9.9 g/dL (12-16); IMMATURE GRANULOCYTES 0.5 % (0-5); LYMPHOCYTES 16.2 % (15-50); MCH 28.8 pg (26.0-34.0); MCHC 32.7 g/dL (31.0-37.0); MCV 88.1 fL (80.0-100.0); MONOCYTES 17.8 % (2-11); NEUTROPHILS 54.1 % (40-80); PLATELET COUNT 243 10x3/uL (130-400); RBC 3.44 10x6/uL (4.00-5.40); RDW 15.6 % (11.5-14.5)
[2019-01-21 03:58] LABS: WBC 3.8 10x3/uL (4.8-10.8)
[2019-01-21 04:00] VITALS: BP 125/70
[2019-01-21 04:11] LABS: ALBUMIN 2.4 g/dL (3.4-5.0); ALKALINE PHOSPHATASE 82 U/L (46-116); ALT (SGPT) 11 U/L (10-68); BILIRUBIN - TOTAL 0.22 mg/dL (0.2-1.3); CALC OSMOLALITY 275 mosm/kg (275-300); CALCIUM 8.4 mg/dL (8.5-10.1); CARBON DIOXIDE 28.4 mmol/L (21.0-32.0); CHLORIDE - SERUM 103 mmol/L (98-107); CREATININE - SERUM 0.6 mg/dL (0.6-1.3); GLUCOSE 90 mg/dL (74-106); POTASSIUM - SERUM 3.8 mmol/L (3.5-5.1); PROTEIN - SERUM 6.6 g/dL (6.4-8.2); SODIUM 139 mmol/L (136-145); UREA NITROGEN 7 mg/dL (7-18); eGFR NON AFRICAN AMERICAN > 90 mL/min (90-120)
[2019-01-21 08:00] VITALS: BP 125/54
[2019-01-21 12:30] VITALS: BP 114/64
[2019-01-21 14:07] VITALS: Ht 165.1 cm; Wt 61.2 kg
[2019-01-21 16:23] VITALS: BP 116/62
[2019-01-21 19:50] VITALS: BP 121/71
[2019-01-22] VITALS: BP 119/70
[2019-01-22 04:00] VITALS: BP 122/78
[2019-01-22 08:32] VITALS: BP 123/82
[2019-01-22 12:31] VITALS: BP 120/69
[2019-01-22 17:49] VITALS: BP 124/74
== END 2019-01-22 19:00 | disposition home or self-care (01) ==
LOC: D.CT 05:58 → D.MS 05:58 → D.CT 08:00 → D.MS 15:00 → D.CT 01-22 19:00
PROVIDERS: Surgery; ATTEND Specialist
DX: K65.1 Peritoneal abscess (principal); C20 Malignant neoplasm of rectum

== ENCOUNTER → 2019-02-02 07:05 | Outpatient (CLI) | payer MEDICAID ==
[~2019-02-02] VITALS: Ht 165.1 cm; Wt 57.7 kg
[~2019-02-02 07:05] MED LIST changes: +CYMBALTA30 MG PO; +HYDROCODON-ACE1 EA10 PO
[2019-02-02 07:35] LABS: BASOPHILS 0.7 % (0-2); EOSINOPHILS 5.1 % (0-7); HEMOGLOBIN 11.3 g/dL (12-16); IMMATURE GRANULOCYTES 0.2 % (0-5); LYMPHOCYTES 10.6 % (15-50); MCH 29.4 pg (26.0-34.0); MCHC 33.2 g/dL (31.0-37.0); MCV 88.3 fL (80.0-100.0); MEAN PLATELET VOLUME 8.8 fL (7.4-10.4); MONOCYTES 11.5 % (2-11); NEUTROPHILS 71.9 % (40-80); PLATELET COUNT 238 10x3/uL (130-400); RBC 3.85 10x6/uL (4.00-5.40); RDW 15.1 % (11.5-14.5); WBC 4.4 10x3/uL (4.8-10.8)
[2019-02-02 07:43] LABS: CALC OSMOLALITY 278 mosm/kg (275-300); CALCIUM 8.7 mg/dL (8.5-10.1); CARBON DIOXIDE 29.1 mmol/L (21.0-32.0); CHLORIDE - SERUM 105 mmol/L (98-107); CREATININE - SERUM 0.6 mg/dL (0.6-1.3); GLUCOSE 87 mg/dL (74-106); POTASSIUM - SERUM 3.3 mmol/L (3.5-5.1); SODIUM 141 mmol/L (136-145); UREA NITROGEN 11 mg/dL (7-18); eGFR NON AFRICAN AMERICAN > 90 mL/min (90-120)
[2019-02-02 07:48] LABS: APTT 26.8 SECONDS (22.8-39.4)
[2019-02-02 07:49] LABS: INR 0.98 (0.85-1.17); PROTIME 12.5 SECONDS (11.6-15.0)
[2019-02-02 07:57] LABS: HCG SERUM NEGATIVE (NEGATIVE)
[2019-02-02 08:16] VITALS: BP 122/73; Ht 165.1 cm; Wt 57.7 kg
--- NOTE | 2019-02-02 09:00 | NUR ---
NEW ONSET OF CHEST PAIN, EKG OBTAINED ORDERED. NOTIFIED MARIJA GUTIERREZ RN WITH SPECIALS. WILL TRANSFER TO ER FOR FURTHER CARDIAC EVALUATION. ER NOTIFIED AND SENT TO ER VIA STRETCHER.
== END | disposition home or self-care (01) ==
LOC: D.SP 07:05 → D.RAD 09:00
PROVIDERS: Anesthesiology; General Practice; ATTEND Surgery
DX: C20 Malignant neoplasm of rectum (principal); K65.1 Peritoneal abscess; Z53.09 Procedure and treatment not carried out because of other contraindication; Z01.812 Encounter for preprocedural laboratory examination

== ENCOUNTER 2019-02-02 08:47 | Observation (INO) | payer MEDICAID ==
[~2019-02-02] VITALS: Ht 165.1 cm; Wt 57.7 kg
--- NOTE | ~2019-02-02 | HEMODYNAMI ---
PATIENT:BECKY KEENAN MEDICAL RECORD: [id number] : [birth year] [place] [id number] ADMISSION DATE: 02/02/19 Generatedon:02/03/201911:07 Patient name: BECKY KEENAN Patient #: [id number] SSN: : 1965 Date of study: 02/03/2019 Page: Of Hemodynamic Procedure Report Patient Data Patient Demographics Procedure consent was obtained First Name: BECKY Gender: Female Last Name: REE : 1965 [facility] Initial: GINGER Age: 53 year(s) Patient #: [id number] Race: Unknown Additional ID: [id number] Contact details Address: [place] [address] State: [place] City: [place] Zip code: [address] Past Medical History Allergies Allergen Reaction Date Comments Reported Penicillins 02/03/2019 Admission Admission Data Admission Date: 02/02/2019 Admission Time: 10:59 Room #: D.2238 Height (in.): 65 BSA: 1.63 (m2) Height (cm.): 165.1 BMI: 21.13 (kg/m2) Weight (lbs.): 127 Weight (kg.): 57.61 Procedure Procedure Types Cath Procedure Peripheral Cath Diagnostic Procedure Loose Hand Packer Peripheral Procedures Abscess Abscessogram Procedure Description Procedure Date Procedure Date: 02/03/2019 Procedure Start Time: 10:56 Procedure Staff Name Function Alexa Boone RT Addictions Counselor Assistant Mary Flowers RN Nurse Robert Graham MD Performing Physician Nancy VALENZUELA RT Scrub Procedure Data Cath Procedure Fluoroscopy Diagnostic fluoroscopy Total fluoroscopy Time: 0.5 time: 0.5 min min Diagnostic fluoroscopy Total fluoroscopy dose: 9 dose: 9 mGy mGy Contrast Material Contrast Material Type Amount (ml) Isovue 300 5 Procedure Medications Medication Administration Route Dosage Heparin Flush Bag added to field 1 bags (1000units/500ml NS) Hemodynamics Rest BSA: 1.63 (m2) O2 Consumption: Estimated: 166.88 (ml/min) O2 Consumption indexed : Estimated:102.38 (ml/min/m) Heart Rate: 86 (bpm) Snapshots Pre Cath Intra NCS Post Cath Vital Signs Time Heart Resp SPO2 etCO2 NIBP (mmHg) Rhythm Pain Sedation Rate (ipm) (%) (mmHg) Status Level (bpm) 10:31:53 84 15 99 0 130/86(107) NSR 0 (11) 10(A) , No pain 10:35:59 88 13 98 0 133/79(107) NSR 0 (11) 10(A) , No pain 10:40:52 96 17 97 0 130/82(107) NSR 0 (11) 10(A) , No pain 10:44:55 91 15 96 0 139/84(106) NSR 0 (11) 10(A) , No pain 10:49:03 93 11 97 0 141/85(109) NSR 0 (11) 10(A) , No pain 10:53:13 90 15 96 0 130/81(105) NSR 0 (11) 10(A) , No pain 10:57:13 96 14 96 0 141/118(124) NSR 0 (11) 10(A) , No pain 11:02:12 83 16 96 0 Measuring NSR 0 (11) 10(A) , No pain 11:02:16 84 16 96 0 137/78(113) NSR 0 (11) 10(A) , No pain Medications Time Medication Route Dose Verified Delivered Reason Notes Effec tiveness by by 10:31:01 Heparin Flush added 1 M J Long M J Long used for Bag to bags MD DOWNS procedure (1000units/500ml field NS) Procedure Log Time Note 10:10:09 Patient Height : 65 inches 10:10:13 Patient Weight : 127 lbs 10:20:05 Time tracking: Regular hours (M-F 7:00 - 5:00) 10:20:42 Plan of Care:Hemodynamics will remain stable., Cardiac rhythm will remain stable., Comfort level will be maintained., Respiratory function will remain adequate., Patient/ family verbilizes understanding of procedure., Procedure tolerated without complication., Recovers from procedure without complications.. 10:20:52 Patient received from Med/Surg to IR Alert and oriented. Tansferred to table in Prone position. 10:20:56 Signed procedure consent form obtained from patient. 10:30:44 ECG and BP/O2 sat monitors applied to patient. 10:30:45 Vital chart was started 10:30:47 Baseline sample Acquired. 10:30:49 Full Disclosure recording started 10:30:50 - 10:30:56 H&P Date Dictated: 02/03/2019 Within 30 days and on chart.. 10:30:57 Pre-procedure instructions explained to patient. 10:30:58 Pre-op teaching completed and patient verbalized understanding. 10:31:01 Family in waiting room. 10:31:01 Heparin Flush Bag (1000units/500ml NS) 1 bags added to field was administered by Robert Graham MD; used for procedure; 10:31:04 Patient NPO since Breakfast. 10:31:19 Patient allergic to Penicillins 10:31:34 - 10:31:47 no sedation given 10:32:06 Right buttock was prepped with chlora-prep and draped in sterile fashion. 10:50:43 Use device set IR Diagnostic 10:50:46 Sterile Angiographic Pack opened to sterile field. 10:50:47 Bag Decanter () opened to sterile field. 10:55:11 Physician arrived 10:56:16 --------ALL STOP TIME OUT------ 10:56:17 Final Timeout: patient, procedure, and site verified with staff and physician. All members of the team are in agreement. 10:56:38 Procedure started. 11:01:54 contrast injected and abscess drain was removed 11:01:59 Procedure ended.(Physican Out) 11:02:45 Tegaderm 4 x 4 ([id number]) opened to sterile field. 11:04:20 Procedure and supply charges have been captured, reviewed, submitted an d are correct. 11:04:23 Report given to Med/Surg. 11:05:48 Full Disclosure recording stopped 11:06:32 Fluoroscopy time 00.50 minutes. 11:06:36 Fluoroscopy dose: 9 mGy 11:06:36 Flurop Dose total: 9 11:06:40 Contrast amount:Isovue 300 5ml. Device Usage Item Name Manufacture Quantity Catalog Hospital Part Current Minimal Lot# / Number Charge Number Stock Stock Serial# Code Tegaderm 4 x 3M 1 [id number] 4 (1626W) Sterile Cardinal 1 [id number] Angiographic Health Pack Bag Decanter Microtek 1 [id number] () [employer] Signature Audit [place] Stage Time Signature Unsigned Intra-Procedure 02/03/2019 Alexa Boone 11:07:00 AM RT(R) [facility] [address] [place] [address]
[~2019-02-02 08:47] MED LIST changes: -CYMBALTA30 MG PO; -HYDROCODON-ACE1 EA10 PO
[2019-02-02 09:24] LABS: BASOPHILS 0.2 % (0-2); HEMATOCRIT 35.3 % (36.0-48.0); HEMOGLOBIN 11.9 g/dL (12-16); IMMATURE GRANULOCYTES 0.6 % (0-5); LYMPHOCYTES 21.7 % (15-50); MCH 29.3 pg (26.0-34.0); MCHC 33.7 g/dL (31.0-37.0); MCV 86.9 fL (80.0-100.0); MEAN PLATELET VOLUME 8.8 fL (7.4-10.4); NEUTROPHILS 65.5 % (40-80); PLATELET COUNT 270 10x3/uL (130-400); RBC 4.06 10x6/uL (4.00-5.40); RDW 14.9 % (11.5-14.5); WBC 5.1 10x3/uL (4.8-10.8)
[2019-02-02 09:41] LABS: INR 0.97 (0.85-1.17); PROTIME 12.4 SECONDS (11.6-15.0)
[2019-02-02 09:43] LABS: D-DIMER-QUANTITATIVE 0.72 ug/mLFEU (0.20-0.54)
[2019-02-02 09:52] VITALS: BP 131/76
[2019-02-02 09:55] LABS: ALBUMIN 3.4 g/dL (3.4-5.0); ALKALINE PHOSPHATASE 93 U/L (46-116); ALT (SGPT) 22 U/L (10-68); CALCIUM 8.9 mg/dL (8.5-10.1); CARBON DIOXIDE 23.5 mmol/L (21.0-32.0); CHLORIDE - SERUM 103 mmol/L (98-107); CKMB 0.3 U/L (0.0-3.6); CREATINE KINASE 39 UL (21-215); GLUCOSE 100 mg/dL (74-106); MAGNESIUM - SERUM 1.8 mg/dL (1.8-2.4); PROTEIN - SERUM 7.8 g/dL (6.4-8.2); SODIUM 139 mmol/L (136-145); TROPONIN-I < 0.017 ng/mL (0.000-0.060)
[2019-02-02 09:57] LABS: CALC OSMOLALITY 275 mosm/kg (275-300); CREATININE - SERUM 0.8 mg/dL (0.6-1.3); UREA NITROGEN 8 mg/dL (7-18); eGFR NON AFRICAN AMERICAN 79 mL/min (90-120)
[2019-02-02 09:59] LABS: POTASSIUM - SERUM 2.8 mmol/L (3.5-5.1)
--- NOTE | 2019-02-02 10:00 | NUR ---
RCLUCINA TC FROM LAB: CRITICAL LAB, POTASSIUM= 2.8 DR MUIR NOTIFIED
[2019-02-02 10:30] VITALS: BP 123/78
--- NOTE | 2019-02-02 10:30 | NUR ---
PT RESTING IN BED WITH EYES CLOSED. AROUSES EASILY WHEN NAME CALLED. "FEEL MUCH BETTER" MOM @ BS
--- NOTE | 2019-02-02 11:16 | NUR ---
EXPL POC: AWAITING BED ASSIGNMENT TO PT AND FAMILY. VERB UNDER
[2019-02-02 11:39] LABS: CREATINE KINASE 32 UL (21-215)
[2019-02-02 11:40] LABS: TROPONIN-I < 0.017 ng/mL (0.000-0.060)
[2019-02-02 11:50] VITALS: BP 128/76
--- NOTE | 2019-02-02 12:37 | MORECARE ---
CASE MANAGEMENT DISCHARGE SUMMARY PATIENT: BECKY KEENAN GINGER UNIT: [id number] ADM DATE: 02/02/19 AGE: 53 : 61 SEX: F ROOM/BED: D.E02 AUTHOR: ESTRADA KEBEDE PHYSICIAN: REFERRING PHYSICIAN: LYNSEY MAN MD DATE OF SERVICE: 02/02/19 Discharge Plan Patient Name: BECKY KEENAN [facility] [facility] 1965 Planned Disposition: Anticipated Discharge Date: Discharge Date: Expected LOS: Initial Reviewer: [email or web address] Initial Review Date: 02/02/2019 Generated: 02/02/19 1:36 pm Patient Name: BECKY KEENAN Page [id number] at 1237 All edits/amendments must be made on the electronic document DICTATION DATE: 02/02/19 1236 ICU REGISTERED NURSE: ANGIE 02/02/19 1236 RPT#: [id number] DC DATE: STATUS: ADM IN [facility] [address] [place] [address] END OF REPORT
--- NOTE | 2019-02-02 12:45 | MORECARE ---
CASE MANAGEMENT DISCHARGE SUMMARY PATIENT: BECKY VILLASENOR GINGER UNIT: [id number] ADM DATE: 02/02/19 AGE: 53 : 61 SEX: F ROOM/BED: D.E02 AUTHOR: ESTRADA KEBEDE PHYSICIAN: REFERRING PHYSICIAN: LYNSEY MAN MD DATE OF SERVICE: 02/02/19 Discharge Plan Patient Name: BECKY VILLASENOR [facility] [facility] 1965 Planned Disposition: Anticipated Discharge Date: Discharge Date: Expected LOS: Initial Reviewer: [email or web address] Initial Review Date: 02/02/2019 Generated: 02/02/19 1:44 pm DCPIA - Discharge Planning Initial Assessment Updated by [email or web address]: Bisi Whalen on 02/02/19 12:39 pm * Is the patient Alert and Oriented? No * How many steps to enter\exit or inside your home? 4 w/rails * PCP Dr. Man * Pharmacy [facility] * Preadmission Environment Home with Family * ADLs Partial Dependent * Partial ADLs (Assistance needed) Bathing Dressing * Other Equipment None reported * List name and contact numbers for known caregivers / representatives who currently or will assist patient after discharge: Lana Villasenor (daughter) [phone] Cami Fam (mother) [phone] * Verbal permission to speak to the caregivers and representatives has been obtained from the patient. Yes * Community resources currently utilized Home Health * Please name any agencies selected above. [facility], [place] * Additional services required to return to the preadmission environment? Yes * Can the patient safely return to the preadmission environment? Yes * Has this patient been hospitalized within the prior 30 days at any hospital? Yes Last DP export: 02/02/19 11:37 a Patient Name: BECKY VILLASENOR Page [phone] at 1249 All edits/amendments must be made on the electronic document DICTATION DATE: 02/02/19 1244 HYDRAULIC CONTROLS TECHNICIAN: ANGIE 02/02/19 1244 RPT#: [id number] DC DATE: STATUS: ADM IN [facility] [address] [place] [address] END OF REPORT
--- NOTE | 2019-02-02 13:17 | MORECARE ---
CASE MANAGEMENT DISCHARGE SUMMARY PATIENT: BECKY VILLASENOR GINGER UNIT: [id number] ADM DATE: 02/02/19 AGE: 53 : 61 SEX: F ROOM/BED: D.E02 AUTHOR: ESTRADA KEBEDE PHYSICIAN: REFERRING PHYSICIAN: LYNSEY MAN MD DATE OF SERVICE: 02/02/19 Discharge Plan Patient Name: BECKY VILLASENOR Facility: [facility]:[place] : 1965 Planned Disposition: Anticipated Discharge Date: Discharge Date: Expected LOS: Initial Reviewer: [email or web address] Initial Review Date: 02/02/2019 Generated: 02/02/19 2:17 pm DCP- Discharge Planning Updated by [email or web address]: Bisi Whalen on 02/02/19 12:[address] CM met with patient to discuss dc plans/needs. Patient is in agreement to proceed with assessment with mother, Cami Fam present. Patient is alert/oriented but has had sedation, gives permission to complete CM assessment. PCP: Dr. Man. Oncology: Dr. Hull. Pharmacy: [facility]. Emergency contact: Lana Villasenor (dtr) [phone], Cami Fam (mother) [phone]. Independent/Partial ADL's: Partial. Needs assistance with bathing/dressing. HHS: [facility], [place]. Colostomy teaching, supplies colostomy bags, drain care. DME: None reported. Denies additional services at this time and feels safe returning to previous environment. Patient denies being hospitalized within the past 30 days: Yes. 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 Transportation at time of discharge: Cami Fam or daughter Lana Villasenor. Patient will dc home with her mother, Cami Fam. DCPIA - Discharge Planning Initial Assessment Updated by [email or web address]: Bisi Whalen on 02/02/19 12:39 pm * Is the patient Alert and Oriented? No * How many steps to enter\exit or inside your home? 4 w/rails * PCP Dr. Man * Pharmacy [facility] * Preadmission Environment Home with Family * ADLs Partial Dependent * Partial ADLs (Assistance needed) Bathing Dressing * Other Equipment None reported * List name and contact numbers for known caregivers / representatives who currently or will assist patient after discharge: Lana Villasenor (daughter) [phone] Cami Fam (mother) [phone] * Verbal permission to speak to the caregivers and representatives has been obtained from the patient. Yes * Community resources currently utilized Home Health * Please name any agencies selected above. [facility], [place] * Additional services required to return to the preadmission environment? Yes * Can the patient safely return to the preadmission environment? Yes * Has this patient been hospitalized within the prior 30 days at any hospital? Yes Last DP export: 02/02/19 11:45 a Patient Name: BECKY VILLASENOR Page [phone] at 1317 All edits/amendments must be made on the electronic document DICTATION DATE: 02/02/191316 ASSOCIATE TECHNICIAN: ANGIE 02/02/197 RPT#: [id number] DC DATE: STATUS: ADM IN [facility] [address] [place] [address] END OF REPORT
--- NOTE | 2019-02-02 14:15 | NUR ---
CALLED DIETARY FOR MEAL TRAY. INFORMED OF PTS ALLERGIES: CHICKEN, PEACHES AND POTATOES
[2019-02-02 14:16] VITALS: BP 127/76
--- NOTE | 2019-02-02 14:31 | NUR ---
REPORT CALLED TO NIGEL MCDOWELL BY SBAR FORMAT
--- NOTE | 2019-02-02 14:46 | NUR ---
PT ADMITTED TO 2237. CONDITION STABLE.
[2019-02-02] MEDS ORDERED: HYDROCODON-ACE1 EA10 PO (14:59)
[2019-02-02 15:01] VITALS: BP 146/65; Ht 165.1 cm; Wt 57.7 kg
--- NOTE | 2019-02-02 15:28 | NUR ---
PT RESTING IN BED. ARRIVED TO FLOOR VIA STRETCHER. MOTHER AT BEDSIDE. NO S/S OF ACUTE DISTRESS. CL IN PLACE.
[2019-02-02 18:04] LABS: CKMB 0.2 U/L (0.0-3.6); CREATINE KINASE 30 UL (21-215); TROPONIN-I < 0.017 ng/mL (0.000-0.060)
--- NOTE | 2019-02-02 18:49 | NUR ---
PT RESTING IN THE BED. REDRESSED DRESSING TO L BUTTOCKS. NO S/S OF ACUTE DISTRESS. CL IN PLACE.
--- NOTE | 2019-02-02 20:30 | NUR ---
PT LYING IN BED RESTING, ALERT AND ORIENTED. WITHOUT DISTRESS. STATES PAIN 2/10 IN BUTTOCKS. IV RIGHT HAND INFUSING 1/2NS WITH 20K @ 125. REQUESTED AND GIVEN AMBIEN TO HELP SLEEP. DENIES OTHER NEEDS. CL IN REACH, WILL CONT TO MONITOR
[2019-02-02 21:17] VITALS: BP 115/69
[2019-02-02 23:52] LABS: CKMB 0.1 U/L (0.0-3.6); CREATINE KINASE 30 UL (21-215)
[2019-02-02 23:53] LABS: TROPONIN-I < 0.017 ng/mL (0.000-0.060)
[2019-02-03 05:04] VITALS: BP 122/67
[2019-02-03 06:14] LABS: BASOPHILS 0.2 % (0-2); EOSINOPHILS 9.9 % (0-7); HEMATOCRIT 31.1 % (36.0-48.0); HEMOGLOBIN 10.2 g/dL (12-16); IMMATURE GRANULOCYTES 0.2 % (0-5); LYMPHOCYTES 13.6 % (15-50); MCH 29.2 pg (26.0-34.0); MCHC 32.8 g/dL (31.0-37.0); MONOCYTES 15.3 % (2-11); NEUTROPHILS 60.8 % (40-80); PLATELET COUNT 216 10x3/uL (130-400); RBC 3.49 10x6/uL (4.00-5.40); RDW 15.3 % (11.5-14.5)
[2019-02-03 06:15] LABS: MCV 89.1 fL (80.0-100.0)
[2019-02-03 06:35] LABS: ALBUMIN 2.6 g/dL (3.4-5.0); ALKALINE PHOSPHATASE 77 U/L (46-116); ALT (SGPT) 17 U/L (10-68); BILIRUBIN - TOTAL 0.17 mg/dL (0.2-1.3); CALC OSMOLALITY 275 mosm/kg (275-300); CALCIUM 8.2 mg/dL (8.5-10.1); CARBON DIOXIDE 29.1 mmol/L (21.0-32.0); CHLORIDE - SERUM 105 mmol/L (98-107); GLUCOSE 91 mg/dL (74-106); PROTEIN - SERUM 6.2 g/dL (6.4-8.2); SODIUM 139 mmol/L (136-145); UREA NITROGEN 8 mg/dL (7-18)
[2019-02-03 06:36] LABS: CREATININE - SERUM 0.5 mg/dL (0.6-1.3); POTASSIUM - SERUM 4.2 mmol/L (3.5-5.1); eGFR NON AFRICAN AMERICAN > 90 mL/min (90-120)
--- NOTE | 2019-02-03 08:02 | HP ---
PATIENT: BECKY KEENAN MEDICAL RECORD: [id number] ACCOUNT: [id number] LOCATION:D.MS [address] : [birth year] ADMISSION DATE: 02/02/19 PCP: LYNSEY MAN MD HISTORY AND PHYSICAL EXAMINATION DATE ASSIGNED TO OBSERVATION: 02/02/2019 CHIEF COMPLAINT: Chest pain, numbness and tingling. HISTORY OF PRESENT ILLNESS: This is a 53-year-old female with recent history of colorectal cancer. She had partial colectomy with colostomy done and has had an abscess formed. She has had a drain in place and she was here at [facility] this morning as an outpatient to hopefully have the drain removed. While she was in the outpatient area, she complained of shortness of breath, shallow breathing, chest pain, generalized numbness and tingling. She was sent in to the Emergency Department where she was evaluated. D-dimer was a little elevated at 0.72. Her potassium was 2.8. Rest of the lab work was good. She is assigned to observation for chest pain and hypokalemia. PAST MEDICAL AND SURGICAL HISTORY: Hypertension, hemorrhoids, recent diagnosis of colorectal cancer. PAST SURGICAL HISTORY: ORIF of left fibula fracture in [address] Tijerina recently. ALLERGIES: PENICILLIN AND SOME FOODS. MEDICATIONS: Phenergan, p.r.n. nausea and vomiting, Waddy 10/325 q.4 hours p.r.n. pain, Prozac 20 mg once a day, Prevacid 30 mg once a day, and a probiotic once a day. SOCIAL HISTORY: Currently, not working, getting over her cancer. FAMILY HISTORY: Father is alive. Mother is alive. She has a history of hypertension. Cancer runs in her family. REVIEW OF SYSTEMS: GENERAL: No major weight changes. HEENT: No particular sinus or allergy problems. RESPIRATORY: No history of asthma or emphysema. CARDIAC: No chest pain, palpitations or history of coronary artery disease. GASTROINTESTINAL: See above history with her diagnosis of colon cancer. GENITOURINARY: No significant problems there. MUSCULOSKELETAL: Few joint aches and pains. NEUROLOGIC: No migraines or seizures. PSYCHIATRIC: She has got some anxiety/depression at this time. PHYSICAL EXAMINATION: VITAL SIGNS: Temperature 99.0, pulse 78, respirations 20, blood pressure 146/65. GENERAL: She is awake and alert. She is feeling better than she did this morning in the ER. SKIN: Warm and dry. HEENT: Grossly within normal limits. NECK: Supple. No JVD or bruit. HISTORY AND PHYSICAL [id number] BECKY KEENAN HEART: Regular rate and rhythm without murmur. LUNGS: Clear. ABDOMEN: Dressing in place. Colostomy in place. EXTREMITIES: No edema. LABORATORY DATA: CBC is normal. BMP is all okay except potassium is 2.8. Liver functions are all okay. D-dimer a little elevated at 0.72. INR normal at 0.97. Troponin is less than 0.017. CTA of the chest with PE protocol shows no PE, nothing acute, otherwise. ASSESSMENT: Observation status for chest pain and hypokalemia. PLAN: Replace potassium. Get serial cardiac enzymes. Consider cardiology referral if enzymes are positive. Other tests and procedures as warranted. TRANSINT:[id number] Voice Confirmation ID: [id number] DOCUMENT ID: [id number] LYNSEY MAN MD at 0802 CC: [id number] DICTATION DATE: 02/02/192254 HANDLE TURNER: 02/03/19 0358 ADM IN [facility] [address] [place] [address]
[2019-02-03] MEDS ORDERED: CYMBALTA30 MG PO (08:13)
[2019-02-03 08:58] VITALS: BP 124/83
--- NOTE | 2019-02-03 12:38 | NUR ---
PT RESTING IN BED. NO SIGNS OF DISTRESS. IV TO RIGHT HAND PATENT NO REDNESS OR TENDERNESS. HAS DRESSING TO LEFT BUTTOCKS CLEAN AND INTACT. HAS COLOSTOMY TO LEFT SIDE OF ABDOMEN. DENIES ANY FUTHER NEED AT THIS TIME. CALL LIGHT IN REACH. BED LOW POSITION. FAMILY AT BEDSIDE.
--- NOTE | 2019-02-03 12:53 | NUR ---
DISCHARGE INSTRUCTIONS GIVEN. SEEMS TO UNDERSTAND INTRUCTIONS. IV OUT TIP INTACT. LEFT WITH FAMILY TO GO HOME IN PERSONAL RIDE. REFUSED AT WHEELCHAIR. DENIES ANY FUTHER NEED BEFORE LEAVING.
--- NOTE | 2019-02-07 15:58 | MORECARE ---
CASE MANAGEMENT DISCHARGE SUMMARY PATIENT: BECKY VILLASENOR GINGER UNIT: [id number] ADM DATE: 02/02/19 AGE: 53 : 61 SEX: F ROOM/BED: D.2238 AUTHOR: YANDY,DOC PHYSICIAN: REFERRING PHYSICIAN: LYNSEY MAN MD DATE OF SERVICE: 02/07/19 Discharge Plan Patient Name: BECKY VILLASENOR Facility: [facility]:[place] : 1965 Planned Disposition: Anticipated Discharge Date: Discharge Date: 02/03/2019 Expected LOS: 0 Initial Reviewer: [email or web address] Initial Review Date: 02/02/2019 Generated: 02/07/19 4:58 pm DCP- Discharge Planning Updated by [email or web address]: Bisi Whalen on 02/02/19 12:[address] CM met with patient to discuss dc plans/needs. Patient is in agreement to proceed with assessment with mother, Cami Fam present. Patient is alert/oriented but has had sedation, gives permission to complete CM assessment. PCP: Dr. Man. Oncology: Dr. Hull. Pharmacy: [facility]. Emergency contact: Lana Villasenor (dtr) [phone], Cami Fam (mother) [phone]. Independent/Partial ADL's: Partial. Needs assistance with bathing/dressing. HHS: [facility], [place]. Colostomy teaching, supplies colostomy bags, drain care. DME: None reported. Denies additional services at this time and feels safe returning to previous environment. Patient denies being hospitalized within the past 30 days: Yes. 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 Transportation at time of discharge: Cami Fam or daughter Lana Villasenor. Patient will dc home with her mother, Cami Fam. DCPIA - Discharge Planning Initial Assessment Updated by [email or web address]: Bisi Whalen on 02/02/19 12:39 pm * Is the patient Alert and Oriented? No * How many steps to enter\exit or inside your home? 4 w/rails * PCP Dr. Man * Pharmacy [facility] * Preadmission Environment Home with Family * ADLs Partial Dependent * Partial ADLs (Assistance needed) Bathing Dressing * Other Equipment None reported * List name and contact numbers for known caregivers / representatives who currently or will assist patient after discharge: Lana Villasenor (daughter) [phone] Cami Fam (mother) [phone] * Verbal permission to speak to the caregivers and representatives has been obtained from the patient. Yes * Community resources currently utilized Home Health * Please name any agencies selected above. [facility], [place] * Additional services required to return to the preadmission environment? Yes * Can the patient safely return to the preadmission environment? Yes * Has this patient been hospitalized within the prior 30 days at any hospital? Yes Last DP export: 02/02/19 12:17 p Patient Name: BECKY VILLASENOR Page [id number] at 1558 All edits/amendments must be made on the electronic document DICTATION DATE: 02/07/191556 DIESEL DINKEY OPERATOR: ANGIE 02/07/191556 RPT#: [id number] DC DATE:02/03/19 STATUS: DIS IN [facility] [address] [place] [address] END OF REPORT
== END 2019-02-03 12:54 | disposition home or self-care (01) ==
LOC: D.ER 08:47 → D.MS 10:59 → D.EDHOLD 10:59 → OBSVTIME 10:59 → D.MS 13:40
PROVIDERS: Family Medicine; ADMIT Family Medicine; ATTEND Family Medicine
DX: R07.9 Chest pain, unspecified (principal); K65.1 Peritoneal abscess; C20 Malignant neoplasm of rectum; E87.6 Hypokalemia; R06.02 Shortness of breath

== ENCOUNTER → 2019-02-16 09:19 | Outpatient (CLI) | payer MEDICAID ==
[2019-02-02 15:01] VITALS: BMI 21.1
[~2019-02-16 09:19] MED LIST changes: +CYMBALTA30 MG PO; +HYDROCODON-ACE1 EA10 PO
== END | disposition home or self-care (01) ==
LOC: D.CT 09:19
PROVIDERS: ATTEND Internal Medicine Medical Oncology
DX: C20 Malignant neoplasm of rectum (principal); R11.2 Nausea with vomiting, unspecified; E86.0 Dehydration

== ENCOUNTER 2019-09-17 15:54 | Emergency (ER) | payer MEDICAID ==
[~2019-09-17] VITALS: Ht 165.1 cm; Wt 77.3 kg
[2019-09-17 16:06] VITALS: Ht 165.1 cm; Wt 77.3 kg
[2019-09-17] MEDS ORDERED: GABAPENTIN300 MG PO (16:08)
[2019-09-17] MEDS ORDERED: ATIVAN0.5 MG PO (16:08)
[2019-09-17] MEDS ORDERED: CYCLOBENZAPRINE10 MG PO (16:09)
[2019-09-17] MEDS ORDERED: TRAZODONE HCL150 MG PO (16:09)
[2019-09-17] MEDS ORDERED: ZPAK PO (17:13)
[2019-09-17] MEDS ORDERED: TYLENOL W/CODEI1 TAB PO (17:13)
[2019-09-17] MEDS ORDERED: ALBUTEROL SULF8.5 GM INH (17:13)
[2019-09-17 18:04] VITALS: BP 140/85
== END 2019-09-17 18:04 | disposition home or self-care (01) ==
LOC: D.ER 15:54
DX: J06.9 Acute upper respiratory infection, unspecified (principal)

== ENCOUNTER 2020-01-31 06:22 | Day surgery (SDC) | payer MEDICAID ==
[~2020-01-31] VITALS: Ht 165.1 cm; Wt 106.4 kg
--- NOTE | ~2020-01-31 | OP ---
PATIENT NAME: BECKY VILLASENOR MEDICAL RECORD: [id number] :61 LOCATION:D.OPS ADMISSION DATE: SURGEON: RAYMOND EDMONDSON MD DATE OF OPERATION: 01/31/2020 PROCEDURE: Colonoscopy via stoma with biopsy. REFERRING PHYSICIAN: Otilio Man MD ONCOLOGIST: Bang Hull MD SURGEON: Sher Bean MD INDICATIONS: Ms. Villasenor is a delightful 54-year-old woman with a history of low rectal cancer diagnosed via colonoscopy on 09/15/2018. She had an APR with Dr. Bean in November 2018, has had chemotherapy and radiation, cancer diagnosis of T3N0M0. She has a colostomy. She presents for outpatient colonoscopy. PREMEDICATIONS: Total IV anesthesia (propofol 420 mg). INSTRUMENT: Olympus video colonoscope, pediatric. PROCEDURE AND FINDINGS: After receiving informed consent, Ms. Villasenor was placed in supine position. The colonoscope was introduced per colostomy located in the left mid abdomen. The stoma was pink and normal in appearance. The colonoscope was introduced per stoma and advanced to the cecum without difficulty. The cecum, IC valve, and appendiceal orifice were identified. The IC valve on one side appeared little prominent and was biopsied. Diverticula were seen scattered throughout the colon ([id number]). There is indigestible debris in the cecum and scattered throughout the colon (fair prep was present). No polyps or masses were seen. Ms. Villasenor tolerated the procedure well, no immediate complications. ASSESSMENT: 1. Prominent ileocecal valve, status post biopsy. 2. Qjbo-vq-bxngtykd pandiverticulosis coli. 3. History of rectal cancer, T3N0M0. RECOMMENDATIONS: 1. High-fiber diet. 2. Arrange colonoscopy in 1 year. TRANSINT:[id number] Voice Confirmation ID: [id number] DOCUMENT ID: [id number] RAYMOND EDMONDSON MD CC: OTILIO MAN MD, BANG HULL MD and SHER BEAN [id number] DICTATION DATE: 01/31/20926 [employer]: 01/31/20 1058 [facility] 01/31/20 [place] [address]
[~2020-01-31 06:22] MED LIST changes: +ALBUTEROL SULF8.5 GM INH; +CYCLOBENZAPRINE10 MG PO; +GABAPENTIN300 MG PO; +TRAZODONE HCL150 MG PO; +TYLENOL W/CODEI1 TAB PO; +ZPAK PO
[2020-01-31] MEDS ORDERED: LISINOPRIL20 MG PO (06:46)
[2020-01-31] MEDS ORDERED: PROTONIX40 MG PO (06:47)
[2020-01-31 06:53] LABS: ANION GAP 12.9 mmol/L (8-16); CALCIUM 8.5 mg/dL (8.5-10.1); CARBON DIOXIDE 27.2 mmol/L (21.0-32.0); CREATININE - SERUM 1.1 mg/dL (0.6-1.3); POTASSIUM - SERUM 4.1 mmol/L (3.5-5.1)
[2020-01-31] MEDS ORDERED: COREG6.25 MG PO (07:09)
[2020-01-31 07:16] VITALS: BP 118/77; Ht 165.1 cm; Wt 106.4 kg
[2020-01-31 07:22] LABS: HEMATOCRIT 39.4 % (36.0-48.0); HEMOGLOBIN 12.9 g/dL (12-16); LYMPHOCYTES 19.6 % (15-50); MCH 28.5 pg (26.0-34.0); MCHC 32.7 g/dL (31.0-37.0); MCV 87.2 fL (80.0-100.0); MEAN PLATELET VOLUME 9.1 fL (7.4-10.4); NEUTROPHILS 63.1 % (40-80); PLATELET COUNT 173 10x3/uL (130-400); RBC 4.52 10x6/uL (4.00-5.40); RDW 14.3 % (11.5-14.5); WBC 4.1 10x3/uL (4.8-10.8)
--- NOTE | 2020-01-31 09:51 | NUR ---
0930-RECD TO ROOM. ALERT. DR EDMONDSON IN TO REPORT FINDINGS. MOTHER NOTIFIED PROCEDURE IS COMPLETE.
--- NOTE | 2020-01-31 10:13 | NUR ---
1000-DISCHARGE INSTRUCTIONS REVIEWED. 1015-D/C HOME VIA WHEELCHAIR TO [facility].
== END 2020-01-31 10:15 | disposition home or self-care (01) ==
LOC: D.OPS 06:22
PROVIDERS: Anesthesiology; ATTEND Internal Medicine Gastroenterology
DX: C20 Malignant neoplasm of rectum (principal); Z93.3 Colostomy status; R12 Heartburn

== ENCOUNTER 2020-03-04 18:15 | Emergency (ER) | payer MEDICAID ==
[~2020-03-04] VITALS: Ht 165.1 cm; Wt 104.3 kg
[~2020-03-04 18:15] MED LIST changes: +LISINOPRIL20 MG PO; +PROTONIX40 MG PO
[2020-03-04 18:20] VITALS: Ht 165.1 cm; Wt 104.3 kg
[2020-03-04] MEDS ORDERED: VOLTAREN75 MG PO (18:42)
[2020-03-04] MEDS ORDERED: CLEOCIN HCL300 MG PO (18:42)
[2020-03-04 19:04] LABS: BASOPHILS 0.3 % (0-2); EOSINOPHILS 3.9 % (0-7); HEMATOCRIT 41.9 % (36.0-48.0); HEMOGLOBIN 13.8 g/dL (12-16); IMMATURE GRANULOCYTES 0.5 % (0-5); LYMPHOCYTES 13.7 % (15-50); MCH 29.3 pg (26.0-34.0); MCHC 32.9 g/dL (31.0-37.0); MEAN PLATELET VOLUME 9.1 fL (7.4-10.4); MONOCYTES 12.6 % (2-11); PLATELET COUNT 159 10x3/uL (130-400); RBC 4.71 10x6/uL (4.00-5.40); RDW 13.8 % (11.5-14.5); WBC 7.9 10x3/uL (4.8-10.8)
[2020-03-04 19:09] LABS: ANION GAP 9.5 mmol/L (8-16); CALCIUM 8.7 mg/dL (8.5-10.1); CARBON DIOXIDE 28.2 mmol/L (21.0-32.0); CREATININE - SERUM 1.2 mg/dL (0.6-1.3); POTASSIUM - SERUM 3.7 mmol/L (3.5-5.1)
[2020-03-04 19:14] LABS: ALBUMIN 3.8 g/dL (3.4-5.0); BILIRUBIN - TOTAL 0.57 mg/dL (0.2-1.3); PROTEIN - SERUM 8.4 g/dL (6.4-8.2)
[2020-03-04 19:35] VITALS: BP 138/67
== END 2020-03-04 19:35 | disposition home or self-care (01) ==
LOC: D.ER 18:15
PROVIDERS: Family Medicine
DX: L03.317 Cellulitis of buttock (principal); T63.301A Toxic effect of unspecified spider venom, accidental (unintentional), initial encounter; I10 Essential (primary) hypertension

== ENCOUNTER → 2020-05-16 11:32 | Outpatient (CLI) | payer MEDICAID ==
[2020-03-04 18:20] VITALS: BMI 39.0
[~2020-05-16 11:32] MED LIST changes: +CLEOCIN HCL300 MG PO; +VOLTAREN75 MG PO
== END | disposition home or self-care (01) ==
LOC: D.NM 11:30
PROVIDERS: ATTEND Internal Medicine Gastroenterology
DX: R93.3 Abnormal findings on diagnostic imaging of other parts of digestive tract (principal)

== ENCOUNTER 2021-03-08 15:00 | Outpatient (CLI) | payer BC ==
[2020-03-04 18:20] VITALS: BMI 39.0
== END 2021-03-08 23:59 | disposition home or self-care (01) ==
LOC: D.MAMMO 15:00
PROVIDERS: ATTEND Family Medicine
DX: Z12.31 Encounter for screening mammogram for malignant neoplasm of breast (principal)